=== PATIENT | female | born 1980 | race Caucasian/White ===

== ENCOUNTER 2023-03-10 10:57 | Emergency (ER) | payer OTHER, SELFPAY ==
[2023-03-10 11:03] VITALS: BP 120/80; PULSE 86; RESP 20; TEMP 36.9; O2SAT 100; BMI 24.7
--- NOTE | 2023-03-10 11:12 | XR_ITS ---
The [address] [address] Patient Name: DEEPTI QUEZADA MRN: [id number] date: 1980 Sex: F Assigned Patient Location: ER Current Patient Location: ER Accession/Order Number: [id number] Exam Date: 03/10/2023 11:29 Report Date: 03/10/2023 11:48 At the request of: ANDERSON SANCHEZ Procedure: XR knee RT 3V PROCEDURE: XR knee RT 3V COMPARISON: None. HISTORY: pain FINDINGS: BONES:No fracture, acute abnormality, or significant arthropathy. SOFT TISSUES:Negative. No visible soft tissue swelling. EFFUSION:None visible. OTHER: Negative. IMPRESSION: No acute radiographic abnormality Electronically authenticated by: SANCHEZ HARRISON Date: 03/10/2023 11:48
--- NOTE | 2023-03-10 12:05 | ED_ITS ---
HPI - Extremity Injury (Lower) General Chief Complaint: Extremity Injury, Lower Stated Complaint: LOWER PAIN Time Seen by Provider: 03/10/23 11:12 Source: patient Mode of arrival: walk-in Limitations: no limitations History of Present Illness HPI Narrative: 42-year-old female presents for right knee pain. She injured it several days ago and it hurts more to move it. She had previous meniscus surgery, years ago. A nkle and hip don't hurt and the pain is moderate. It's worse when she bears weight on it. Related Data Home Medications Medication Instructions Recorded Confirmed albuterol sulfate 90 mcg/actuation 2 puff inhalation Q4H PRN 03/10/23 03/10/23 aerosol inhaler shortness of breath or wheezing alprazolam 0.25 mg tablet 0.25 mg PO BID PRN anxiety 03/10/23 03/10/23 fluoxetine 10 mg capsule 10 mg PO DAILY 03/10/23 03/10/23 metoprolol succinate 25 mg 25 mg PO DAILY 03/10/23 03/10/23 tablet,extended release 24 hr Allergies Allergy/AdvReac Type Severity Reaction Status Date / Time No Known Drug Allergies Allergy Verified 03/10/23 11:02 Review of Systems ROS Narrative A ten point review of systems is negative except as noted above. [facility] Medical History (Updated 03/10/23 @ 12:04 by Meliton Forbes MD) Social History Smoking status: Former smoker Exam Narrative Exam Narrative: Nurses note and vital signs reviewed and patient is not hypoxic. General: The patient appears well and in no apparent distress. Patient is resting comfortably on cart. Skin: Warm, dry, no pallor noted. There is no rash noted. Head: Normocephalic, atraumatic Eye: Normal conjunctiva, no drainage Ears, Nose, Mouth, and Throat: oral mucosa is moist. Nares patent. Cardiovascular: Regular Rate and Rhythm Respiratory: Patient is in no distress, no accessory muscle use, lungs are clear to auscultation, no wheezing, rales or rhonchi Back: non-tender GI: nontender Musculoskeletal: the right hip and ankle are nontender. The right knee joint is stable. No laxity on varus or valgus motion. No obvious swelling and no bruising or erythema. Neurological: A&O, normal speech Psychiatric: Cooperative Constitutional Vital Signs - 24 hr 03/10/23 11:03 Temperature 98.4 F Pulse Rate [Monitor] 86 Respiratory Rate 20 Blood Pressure [Left Arm] 120/80 H Pulse Oximetry 100 Oxygen Delivery Method Room Air Course Vital Signs Vital signs: Vital Signs Temperature 98.4 F 03/10/23 11:03 Pulse Rate 86 03/10/23 11:03 Respiratory Rate 20 03/10/23 11:03 Blood Pressure 120/80 H 03/10/23 11:03 Pulse Oximetry 100 03/10/23 11:03 Oxygen Delivery Method Room Air 03/10/23 11:03 Temperature 98.4 F 03/10/23 11:03 Pulse Rate 86 03/10/23 11:03 Respiratory Rate 20 03/10/23 11:03 Blood Pressure 120/80 H 03/10/23 11:03 Pulse Oximetry 100 03/10/23 11:03 Oxygen Delivery Method Room Air 03/10/23 11:03 MDM - Extremity Injury (Lower) MDM Narrative Medical decision making narrative: x-rays negative. I suspect meniscal injury. Hunter wrap applied and application checked by me and found to be appropriate, she is neurovascularly intact. She is also placed on crutches and will use ice and Motrin. She will follow-up with her established orthopedist. Treatment diagnosis and follow-up were discussed with the patient. Differential Diagnosis Differential diagnosis: Likely acute internal derangement of knee and other (knee sprain, knee fracture) Discharge Plan Discharge Chief Complaint: Extremity Injury, Lower Clinical Impression: Acute internal derangement of knee Patient Disposition: Home, Self-Care Time of Disposition Decision: 12:04 Condition: Good Mode of Transportation: Private Vehicle Prescriptions / Home Meds: No Action metoprolol succinate 25 mg tablet extended release 24 hr 25 mg PO DAILY albuterol sulfate 90 mcg/actuation HFA aerosol inhaler 2 puff INHALATION Q4H PRN (Reason: shortness of breath or wheezing) alprazolam 0.25 mg tablet 0.25 mg PO BID PRN (Reason: anxiety) fluoxetine 10 mg capsule 10 mg PO DAILY Instructions: Knee Sprain (ED) Additional Instructions: Follow up with Dr Mcknight Stand Alone Forms: Portal Instructions Referrals: VINCENZO HOOVER [Primary Care Provider] - 1 week
== END 2023-03-10 12:27 | disposition home or self-care (01) ==
PROVIDERS: Emergency Provider Emergency Medicine; PCP Family Medicine
DX: M23.91 Unspecified internal derangement of right knee (principal); Z79.899 Other long term (current) drug therapy; Z87.891 Personal history of nicotine dependence
CPT/HCPCS: 73562; 99283

== ENCOUNTER 2023-11-28 11:07 | Outpatient (OUT) | payer OTHER, SELFPAY ==
--- NOTE | 2023-11-28 11:15 | XR_ITS ---
The [address] [address] Patient Name: DEEPTI QUEZADA MRN: [id number] date: 1980 Sex: F Assigned Patient Location: [facility] Current Patient Location: Accession/Order Number: [id number] Exam Date: 11/28/2023 11:20 Report Date: 11/29/2023 08:01 At the request of: LASHAE JEONG Procedure: XR cervical spine 2-3V EXAMINATION: XR cervical spine 2-3V HISTORY: acute neck pain M54.2 COMPARISON: No relevant comparison available. FINDINGS: BONES: No significant spondylosis, scoliosis, fracture, or visible bony lesion. DISC SPACES: Mild narrowing C4-5, C5-6, C6-7 with small posterior disc-osteophyte complexes. PARASPINOUS: Negative. No paraspinous abnormality is seen. OTHER: Negative. XR/XR cervical spine 2-3V IMPRESSION: 1. Multiple level mild degenerative disc disease. Electronically authenticated by: CHLOE CURRY Date: 11/29/2023 08:01
== END 2023-11-28 11:08 | disposition home or self-care (01) ==
LOC: RAD 11:11
PROVIDERS: PCP Family Medicine; Visit Provider Nurse Practitioner Family
DX: M54.2 Cervicalgia (principal)
CPT/HCPCS: 72040

== ENCOUNTER 2023-12-10 08:54 | Emergency (ER) | payer OTHER, SELFPAY ==
[2023-12-10 08:57] VITALS: BP 145/100; PULSE 81; RESP 18; TEMP 36.5; O2SAT 98; BMI 24.3
--- OUTSIDE RECORDS SUMMARY | 2023-12-10 09:16 | XMS_ITS | CCD ---
Author Organization [facility] Care Team Providers Care Motor Operator Name Role Phone JESUS ESTRADA Admitting Unavailable KARASIK, JESUS Attending Unavailable FURLOWILFRED MEDINA Primary Care Unavailable KARASIK, JESUS Admitting Unavailable KARASIK, JESUS Attending Unavailable ALYSSALOWILFRED MEDINA Primary Care Unavailable KARASIK, JESUS Consulting Unavailable KARASIK, JESUS Admitting Unavailable KARASIK, JESUS Attending Unavailable FURLOWILFRED MEDINA Primary Care Unavailable KARASIK, JESUS Consulting Unavailable BURT KEYES Consulting Unavailable KARASIK, JESUS Admitting Unavailable KARASIK, JESUS Attending Unavailable FURLOWILFRED MEDINA Primary Care Unavailable KARASIK, JESUS Consulting Unavailable KARASIK, JESUS Admitting Unavailable KARASIK, JESUS Attending Unavailable KARASIK, JESUS Admitting Unavailable KARASIK, JESUS Attending Unavailable REQUEST, NONE LISTED Primary Care Unavailable KARASIK, JESUS Consulting Unavailable SANCHEZ HARRISON V Consulting Unavailable KARASIK, JESUS Admitting Unavailable KARASIK, JESUS Attending Unavailable KARASIK, JESUS Consulting Unavailable Giacomo Juarez Unavailable Wilfred Fragoso DO Primary Care Provider LASHAE JEONG Attending Unavailable WILFRED FRAGOSO Referring Unavailable WILFRED FRAGOSO Primary Care Unavailable Medications Current Medications Medication Drug Class(es) Dates Sig (Normalized) Sig (Original) [id number] 200 actuat albuterol 0.09 mg/actuat metered dose inhaler (7 sources) beta2-Adrenergic Agonist Start: 09-10-2023 take 2 puff(s) by mouth every four hours albuterol (PROVENTIL HFA;VENTOLIN HFA) 90 mcg/actuation inhaler Indications: Mild intermittent asthma without complication inhale 2 puffs by mouth and INTO THE LUNGS every 4 hours if needed 8.5 g 0 09/10/2023 Active Start: 07-11-2023 take 3 mL by inhalat ion every six hours as needed for wheezing albuterol (PROVENTIL,VENTOLIN) 2.5 mg /3 mL (0.083 %) nebulizer solution Indications: Mild intermittent asthma without complication Inhale 3 mL (2.5 mg total) by nebulization every 6 (six) hours as needed for wheezing or shortness of breath. 75 mL 2 07/11/2023 Active take 2 puff(s) by in halation every four hours as needed Albuterol Sulfate HFA 108 (90 Base) MCG/ACT 2 puffs as needed Inhalation every 4 hrs Active ALPRAZolam 0.25 mg oral tablet (3 sources) Benzodiazepine Start: 05-08-2023 take 1 tablet by mouth twice daily as needed for anxiety ALPRAZolam (XANAX) 0.25 mg tablet Indications: Anxiety Take 1 tablet (0.25 mg total) by mouth 2 (two) times a day as needed for anxiety. 30 tablet 0 05/08/2023 Active baclofen 10 mg oral tablet (2 sources) gamma-Aminobutyric Acid-ergic Agonist Start: 11-22-2023 take 1 tablet by mouth three times daily as needed for muscle spasms baclofen (LIORESAL) 10 mg tablet Take 1 tablet (10 mg total) by mouth 3 (three) times a day as needed for muscle spasms. 30 tablet 1 11/22/2023 Active gabapentin 300 mg oral capsule (1 source) Anti-epileptic Agent Start: 11-26-2023 take 1 capsule by mouth once daily as needed gabapentin (NEURONTIN) 300 mg capsule Indications: Cervical radiculopathy Take 1 capsule (300 mg total) by mouth daily as needed (nerve symptoms to arm). 7 capsule 0 11/26/2023 Active Start: 11-26-2023 take 1 capsule by [facility] once daily as needed gabapentin (NEURONTIN) 300 mg capsule Indications: Cervical radiculopathy Take 1 capsule (300 mg total) by mouth daily as needed (nerve symptoms to arm). 7 capsule 0 11/26/2023 Active 24 hr metoprolol succinate 25 mg extended release oral tablet (3 sources) beta-Adrenergic Umer Start: 06-03-2023 take 1 tablet by mouth once daily in the morning metoprolol succinate XL (TOPROL XL) 25 mg 24 hr tablet Indications: Primary hypertension take 1 tablet by mouth every morning 30 tablet 2 06/03/2023 Active predniSONE 20 mg oral tablet (2 sources) Start: 11-22-2023 End: 11-27-2023 take 1 tablet by mouth in the morning, then take 1 tablet by mouth at bedtime predniSONE (DELTASONE) 20 mg tablet Take 1 tablet (20 mg total) by mouth in the morning and 1 tablet (20 mg total) before bedtime. Do all this for 5 days. 10 tablet 0 11/22/2023 11/27/2023 Active vortioxetine 5 mg oral tablet (4 sources) Start: 08-22-2023 End: 10-28-2023 take 1 tablet by mouth once daily in the morning vortioxetine (TRINTELLIX) 5 mg tablet take 1 tablet by mouth every morning 30 tablet 0 10/28/2023 Active Problems Active Problems Problem Classification Problem Date Documented Da te Episodic/Chronic Abdominal pain (1 source) Pelvic and perineal pain; Translations: [PELVIC AND PERINEAL PAIN] Onset: 11-05-2018 Anxiety disorders (3 sources) Anxiety; Translations: [Anxiety disorder, unspecified] 12-10-2022 Chronic Asthma (1 source) Unspecified asthma, uncomplicated; Translations: [UNSPECIFIED ASTHMA UNCOMPLICATED] Onset: 11-05-2018 Chronic Diseases of white blood cells (1 source) Elevated white blood cell count, unspecified; Translations: [ELEVATED WHITE BLOOD CELL COUNT UNS] Onset: 11-05-2018 Chronic Essential hypertension (3 sources) Essential hypertension; Translations: [Essential (primary) hypertension] Onset: 12-10-2022 12-10-2022 Chronic Mood disorders (3 sources) Depressive disorder; Translations: [Depression] 12-10-2022 Chronic Mycoses (1 source) Candidiasis of vulva and vagina; Translations: [CANDIDIASIS OF VULVA AND VAGINA] Onset: 09-29-2019 Episodic Other diseases of bladder and urethra (3 sources) Mass of urinary bladder; Translations: [Other specified disorders of bladder] Onset: 07-01-2019 05-04-2020 Chronic Other female genital disorders (5 sources) Abnormal uterine and vaginal bleeding, unspecified; Translations: [ABNORMAL UTERINE VAGINAL BLEED UNS] Onset: 10-28-2018 Chronic Other screening for suspected conditions (not mental disorders or infectious disease) (4 sources) Encounter for screening for malignant neoplasm of cervix; Translations: [ENC SCREENING MALIG NEOPLASM CERV] Onset: 09-24-2019 Episodic Spondylosis; intervertebral disc disorders; other back problems (3 sources) Neck pain; Translations: [Cervicalgia] Onset: 11-22-2023 11-22-2023 Episodic Unclassified (1 source) throbbing Onset: 11-22-2023 Past or Other Problems Problem Classification Problem Date Documented Da te Episodic/Chronic Abdominal pain (5 sources) Unspecified abdominal pain; Translations: [Left lower quadrant pain] Onset: 12-24-2018 Episodic Acute posthemorrhagic anemia (1 source) Acute posthemorrhagic anemia; Translations: [ACUTE POSTHEMORRHAGIC ANEMIA] Onset: 11-05-2018 Episodic Calculus of urinary tract (3 sources) Kidney stone; Translations: [Calculus of kidney] Onset: 05-27-2019 05-27-2019 Episodic Genitourinary symptoms and ill-defined conditions (6 sources) Blood in urine; Translations: [Hematuria, unspecified] Onset: 05-27-2019 05-04-2020 Episodic Immunizations and screening for infectious disease (2 sources) Encounter for screening for human papillomavirus (HPV); Translations: [Contact with and (suspected) exposure to other viral communicable diseases] Onset: 09-29-2019 Resolved: 09-21-2021 Episodic Inflammatory diseases of female pelvic organs (1 source) Female pelvic peritoneal adhesions (postinfective); Translations: [FE PELV PERITON ADHES POSTINFECTIVE] Onset: 11-05-2018 Episodic Mood disorders (3 sources) Mood disorders Onset: 08-22-2023 Resolved: 11-22-2023 08-22-2023 Other female genital disorders (4 sources) Unspecified condition associated with female genital organs and menstrual cycle; Translations: [UNS COND W/FE GENIT ORGN MENST CYCL] Onset: 06-04-2019 Episodic Other gastrointestinal disorders (1 source) Constipation; Translations: [Constipation] Episodic Residual codes; unclassified (1 source) Acquired absence of both cervix and uterus; Translations: [ACQUIRED ABSENCE BOTH CERVIX AND UTERUS] Onset: 06-10-2019 Episodic Screening and history of mental health and substance abuse codes (1 source) Personal history of nicotine dependence; Translations: [PERSONAL HISTORY OF NICOTINE DEPEND] Onset: 11-05-2018 Episodic Results Test Name Value Interpretation Reference Range Facility COVID Quick Testingon 2021 Result Negative [employer] Other PAP ACOG PANEL 2: 30 to 65on 09-30-2019 Age Gdln ACOG Testing 30-65 Normal [facility] Comment on above: Performed By: #### P REG #### [facility] [address] [address] Errol Waddell COMMENT Comment Normal [facility] Comment on above: Result Comment: Z01. 419 Z11.51 Performed at: WB Performed By: #### P REG #### [facility] [address] [address] Errol Waddell DIAGNOSIS: Comment Normal [facility] Comment on above: Result Comment: NEGA TIVE FOR INTRAEPITHELIAL LESION OR MALIGNANCY. Performed at: WB Performed By: #### P REG #### [facility] [address] [address] Errol Waddell HPV Aptima Negative Normal Negative [facility] Comment on above: Result Comment: This test was developed and its performance characteristics determined by [employer]. It has not been cleared or approved by the Food and Drug Administration. This nucleic acid amplification test detects fourteen high-risk HPV types (16,18,31,33,35,39,45,51,52,56,58,59,66,68) without differentiation. Performed at: =G Performed By: #### P REG #### [facility] [address] [address] Errol Waddell Methodology: Comment Normal [facility] Comment on above: Result Comment: This liquid based SurePath(R) pap test was screened with the assistance of an image guided system. Performed at: WB Performed By: #### P REG #### [facility] [address] [address] Errol Waddell Note: Comment Normal [facility] Comment on above: Result Comment: The Pap smear is a screening test designed to aid in the detection of premalignant and malignant conditions of the uterine cervix. It is not a diagnostic procedure and should not be used as the sole means of detecting cervical cancer. Both false-positive and false-negative reports do occur. . Performed at: WB Performed By: #### P REG #### [facility] [address] [place] [address] Errol Waddell Performed by: Comment Normal [facility] Comment on above: Result Comment: Connie Awan, Ambulatory Care Coordinator (ASCP) Performed at: WB Performed By: #### P REG #### [facility] [address] [place] [address] Errol Waddell Specimen adequacy: Comment Normal [facility] Comment on above: Result Comment: Sati sfactory for evaluation. No endocervical cells are present. This is consistent with a history of hysterectomy. Performed at: WB Performed By: #### P REG #### [facility] [address] [place] [address] Errol Waddell . . Normal [facility] Comment on above: Result Comment: Perf ormed at: WB Performed By: #### P REG #### [facility] [address] [place] [address] Errol Waddell VAGINITIS/VAGINOSIS DNA PROB Micah 09-27-2019 Edna species Positive Abnormal Negative [facility] Comment on above: Performed By: #### P REG #### [facility] [address] [place] [address] Errol Waddell Gardnerella vaginalis Negative Normal Negative [facility] Comment on above: Performed By: #### P REG #### [facility] [address] [place] [address] Errol Waddell Trichomonas vaginalis Negative Normal Negative [facility] Comment on above: Performed By: #### P REG #### [facility] [address] [place] [address] Errol Waddell US PELVIS AND TRANSVAGon US PELVIS AND TRANSVAG Patient: DEEPTI ARELLANO Exam Date: 06/04/2019 : 1980 Gender:F Ordering : DR JESUS ESTRADA . Admission #: [id number] Family : Order #: [id number] CLICK HERE TO VIEW EXAM RADIOLOGY REPORT PROCEDURE: ULTRASOUND PELVIS AND TRANSVAGINAL COMPARISON: None. INDICATIONS: Disorder of female genital organs N94.9 TECHNIQUE: Transabdominal sonographic examination. Transvaginal sonographic examination. FINDINGS: UTERUS: Surgically absent. RIGHT OVARY: Normal size and appearance. Blood flow present within ovary on color Doppler. Right ovary: 2.4 x 3.0 x 1.8 cm (6.8 cc) LEFT OVARY: Normal size and appearance. Blood flow is present within ovary on Color Doppler. Left ovary: 1.6 x 1.1 x 1.5 cm (1.4 cc) CONCLUSION: 1. Hysterectomy, otherwise normal exam Dictated by: Sanchez Harrison M.D. on 06/04/2019 at 12:20 Approved by: Sanchez Harrison M.D. on 06/04/2019 at 12:23 Normal [facility] UA RANDOM W/MICROSCOPICon Bacteria LM.HPF (Urine sed) [#/Area] NONE SEEN Normal NONE SEEN The [facility] Comment on above: Performed By: #### P REG #### [facility] [address] [place] [address] Errol Nadira Bilirubin [Mass/Vol] Negative Normal NEGATIVE [facility] Comment on above: Performed By: #### P REG #### [facility] [address] [place] [address] Errol Nadira BLOOD TRACE-INTACT Normal NEGATIVE [facility] Comment on above: Performed By: #### P REG #### [facility] [address] [place] [address] Errol Nadira CAST NONE SEEN Normal NONE SEEN [facility] Comment on above: Performed By: #### P REG #### [facility] [address] [place] [address] Errol Nadira Clarity (U) CLEAR Normal [facility] Comment on above: Performed By: #### P REG #### [facility] [address] [place] [address] Errol Nadira Color (U) YELLOW Normal YELLOW [facility] Comment on above: Performed By: #### P REG #### [facility] [address] [place] [address] Errol Nadira Crystals LM Nom (Urine sed) NONE SEEN Normal NONE SEEN The [facility] Comment on above: Performed By: #### P REG #### [facility] [address] [place] [address] Errol Nadira Epithelial cells LM.HPF (Urine sed) [#/Area] FEW Normal [facility] Comment on above: Performed By: #### P REG #### [facility] [address] [place] [address] Errol Nadira Glucose [Mass/Vol] Negative Normal NEGATIVE [facility] Comment on above: Performed By: #### P REG #### [facility] [address] [place] [address] Errol Nadira Ketones Ql (U) Negative Normal NEGATIVE [facility] Comment on above: Performed By: #### P REG #### [facility] [address] [place] [address] Errol Nadira MUCOUS MODERATE Normal NONE SEEN The [facility] Comment on above: Performed By: #### P REG #### [facility] [address] [place] [address] Errol Nadira Nitrite Ql (U) Negative Normal NEGATIVE [facility] Comment on above: Performed By: #### P REG #### [facility] [address] [place] [address] Errol Nadira pH (Bld) 6.5 Normal 5-9 [facility] Comment on above: Performed By: #### P REG #### [facility] [address] [place] [address] Errol Nadira Protein [Mass/Vol] Negative Normal [facility] Comment on above: Performed By: #### P REG #### [facility] [address] [place] [address] Errol Nadira RBC (Bld) [#/Vol] 0-2 Normal 0-2 [facility] [place] Comment on above: Performed By: #### P REG #### [facility] [address] [place] [address] Errol Nadira SPEC GRAVITY 1.020 Normal 1.005-<=1.[address] [facility] Comment on above: Performed By: #### P REG #### [facility] [address] [place], [place] [address] Errol Waddell Urobilinogen Qn (U) 1.0 EU/dl Normal [facility] Comment on above: Performed By: #### P REG #### [facility] [address] [place], [place] [address] Erroladelaida Waddell WBC (Bld) [#/Vol] Negative Normal NEGATIVE [facility] [place] Comment on above: Performed By: #### P REG #### [facility] [address] [place], [place] [address] Errol Nadira WBC (Bld) [#/Vol] 0-2 Normal NONE SEEN The [facility] [place] Comment on above: Performed By: #### P REG #### [facility] [address] [place], [place] [address] Errol Waddell Yeast LM Ql (Urine sed) PRESENT Normal [facility] Comment on above: Performed By: #### P REG #### [facility] [address] [place], [place] [address] Errol Waddell PRBC LEUKOREDUCEDon 11-12-19 19 ABO and Rh group Nom (Bld) Cross Match Result Compatible Unit Blood Type O Pos Unit Number [id number] Status Information Transfused Product ID Red Blood Cells Product Code [id number] Cross Match Result Compatible Unit Blood Type O Pos Unit Number [id number] Status Information Transfused Product ID Red Blood Cells Product Code [id number] [facility] Comment on above: Performed By: #### P RBC #### [facility] [address] [place], [place] [address] Errol Waddell ABO and Rh group Nom (Bld) Cross Match Result Compatible Unit Blood Type O Pos Unit Number [id number] Status Information Transfused Product ID Red Blood Cells Product Code [id number] Cross Match Result Compatible Unit Blood Type O Pos Unit Number [id number] Status Information Transfused Product ID Red Blood Cells Product Code [id number] [facility] Comment on above: Performed By: #### P RBC #### [facility] [address] [place] [address] Errol Nadira CBC AUTO DIFFon 10-29-2018 Basophils (Bld) [#/Vol] 0.0 103/ul Normal 0.0-0.1 [facility] Comment on above: Performed By: #### C BC #### [facility] [address] [place], [place] [address] Errol Nadira Basophils/100 WBC (Bld) 0.2 % Normal 0.2-2.0 [facility] Comment on above: Performed By: #### C BC #### [facility] [address] [place] [address] Errol Nadira Eosinophils (Bld) [#/Vol] 0.2 103/ul Normal 0.0-0.7 [facility] Comment on above: Performed By: #### C BC #### [facility] [address] [place] [address] Errol Nadira Eosinophils/100 WBC (Bld) 1.8 % Normal 0.9-7.0 [facility] Comment on above: Performed By: #### C BC #### [facility] [address] [place] [address] Errol Nadira Erythrocyte distribution width (RBC) [Ratio] 13.6 % Normal 11.0-15.0 [facility] Comment on above: Performed By: #### C BC #### [facility] [address] [place], [place] [address] Errol Nadira Hematocrit (Bld) [Volume fraction] 26.2 % Critically low 36.0-48.0 [facility] Comment on above: Performed By: #### C BC #### [facility] [address] [place] [address] Errol Nadira Hemoglobin (Bld) [Mass/Vol] 8.9 g/dL Critically low 12.0-16.0 [facility] Comment on above: Performed By: #### C BC #### [facility] [address] [place] [address] Errol Nadira IG # 0.04 10e3/ul Critically high 0.00-0.[address] [facility] Comment on above: Performed By: #### C BC #### [facility] [address] [id number] Errol Nadira IG % 0.4 % Normal 0.0-0.5 [facility] Comment on above: Performed By: #### C BC #### [facility] [address] [place], [place] [address] Errol Nadira Lymphocytes (Bld) [#/Vol] 2.2 103/ul Normal 1.2-3.8 [facility] Comment on above: Performed By: #### C BC #### [facility] [address] [place], [place] [address] Errol Nadira Lymphocytes/100 WBC (Bld) 23.5 % Normal 20.5-60.0 [facility] Comment on above: Performed By: #### C BC #### [facility] [address] [place], [place] [address] Errol Nadira MANUAL DIFF REQ NO Normal The [facility] Comment on above: Performed By: #### C BC #### [facility] [address] [place], [place] [address] Errol Nadira MCH (RBC) [Entitic mass] 30.6 pg Normal 26.7-34.0 [facility] Comment on above: Performed By: #### C BC #### [facility] [address] [place] [address] Errol Nadira MCHC (RBC) [Mass/Vol] 34.0 g/dL Normal 29.9-35.2 [facility] Comment on above: Performed By: #### C BC #### [facility] [address] [place], [place] [address] Errol Nadira MCV (RBC) [Entitic vol] 90.0 fL Normal 81.0-99.0 [facility] Comment on above: Performed By: #### C BC #### [facility] [address] [place], [place] [address] Errol Nadira Monocytes (Bld) [#/Vol] 0.5 103/ul Normal 0.3-0.8 [facility] Comment on above: Performed By: #### C BC #### [facility] [address] [place], [place] [address] Errol Nadira Monocytes/100 WBC (Bld) 5.6 % Normal 1.7-12.0 [facility] Comment on above: Performed By: #### C BC #### [facility] [address] [place], [place] [address] Errol Nadira Neutrophils (Bld) [#/Vol] 6.4 103/ul Normal 1.4-6.5 [facility] Comment on above: Performed By: #### C BC #### [facility] [address] [place], [place] [address] Errol Nadira Neutrophils/100 WBC (Bld) 68.5 % Normal 43.0-75.0 [facility] Comment on above: Performed By: #### C BC #### [facility] Laboratory [address] [place] [id number] Errol Nadira Platelet mean volume (Bld) [Entitic vol] 10.2 fL Normal 9.5-13.5 [facility] Comment on above: Performed By: #### C BC #### [facility] Laboratory [address] [place], [place] [address] Errol Nadira Platelets (Bld) [#/Vol] 145 103/ul Critically low 150-450 The [facility] Comment on above: Performed By: #### C BC #### [facility] Laboratory [address] [place] [address] Errol Nadira RBC (Bld) [#/Vol] 2.91 106/ul Critically low 4.20-5.40 [facility] Comment on above: Performed By: #### C BC #### [facility] Laboratory [address] [place], [place] [address] Errol Nadira WBC (Bld) [#/Vol] 9.3 103/ul Normal 4.0-11.0 The [facility] [place] Comment on above: Performed By: #### C BC #### [facility] Laboratory [address] [place] [address] Errol Nadira HEMOGLOBINon 10-29-2018 Hemoglobin (Bld) [Mass/Vol] 9.6 g/dL Critically low 12.0-16.0 The [facility] Comment on above: Performed By: #### H GB #### [facility] Laboratory [address] [place], [place] [id number] Erroladelaida Waddell BUNon 10-28-2018 Urea nitrogen [Mass/Vol] 12.0 mg/dL Normal 7.0-17.0 The [facility] Comment on above: Performed By: #### C DAVID, BUN #### [facility] Laboratory [address] [place], [place] [phone] Errol Nadira CBC AUTO DIFFon 10-28-2018 Basophils (Bld) [#/Vol] 0.0 103/ul Normal 0.0-0.1 The [facility] Comment on above: Performed By: #### C BC #### [facility] Laboratory [address] [place] [address] Errol Nadira Basophils/100 WBC (Bld) 0.2 % Normal 0.2-2.0 The [facility] Comment on above: Performed By: #### C BC #### [facility] Laboratory [address] [place] [address] Errol Nadira Eosinophils (Bld) [#/Vol] 0.1 103/ul Normal 0.0-0.7 The [facility] Comment on above: Performed By: #### C BC #### [facility] Laboratory [address] [place] [address] Errol Nadira Eosinophils/100 WBC (Bld) 0.7 % Critically low 0.9-7.0 The [facility] Comment on above: Performed By: #### C BC #### [facility] Laboratory [address] [place] [address] Errol Nadira Erythrocyte distribution width (RBC) [Ratio] 13.2 % Normal 11.0-15.0 The [facility] Comment on above: Performed By: #### C BC #### [facility] Laboratory [address] [place] [address] Errol Nadira Hematocrit (Bld) [Volume fraction] 23.5 % Critically low 36.0-48.0 The [facility] Comment on above: Result Comment: test repeated, critical value verified Performed By: #### C BC #### [facility] Laboratory [address] [place], [place] [address] Errol Nadira Hemoglobin (Bld) [Mass/Vol] 7.9 g/dL Critically low 12.0-16.0 The [facility] Comment on above: Performed By: #### C BC #### [facility] Laboratory [address] [place], [place] [address] Errol Nadira IG # 0.09 10e3/ul Critically high 0.00-0.[address] [facility] Comment on above: Performed By: #### C BC #### [facility] Laboratory [address] [place] [id number] Errol Naidra IG % 0.6 % Critically high 0.0-0.[address] [facility] Comment on above: Performed By: #### C BC #### [facility] Laboratory [address] [place] [id number] Errol Nadira Lymphocytes (Bld) [#/Vol] 2.5 103/ul Normal 1.2-3.8 The [facility] Comment on above: Performed By: #### C BC #### [facility] Laboratory [address] [place], [place] [phone] Errol Nadira Lymphocytes/100 WBC (Bld) 17.0 % Critically low 20.5-60.0 [facility] Comment on above: Performed By: #### C BC #### [facility] Laboratory [address] [place], [place] [address] Errol Nadira MANUAL DIFF REQ NO Normal The [facility] Comment on above: Performed By: #### C BC #### [facility] Laboratory [address] [place], [place] [address] Errol Nadira MCH (RBC) [Entitic mass] 30.6 pg Normal 26.7-34.0 [facility] Comment on above: Performed By: #### C BC #### [facility] Laboratory [address] [place], [place] [address] Errol Nadira MCHC (RBC) [Mass/Vol] 33.6 g/dL Normal 29.9-35.2 The [facility] Comment on above: Performed By: #### C BC #### [facility] Laboratory [address] [place], [place] [address] Errol Nadira MCV (RBC) [Entitic vol] 91.1 fL Normal 81.0-99.0 [facility] Comment on above: Performed By: #### C BC #### [facility] Laboratory [address] [place] [address] Errol Nadira Monocytes (Bld) [#/Vol] 0.8 103/ul Normal 0.3-0.8 The [facility] Comment on above: Performed By: #### C BC #### [facility] Laboratory [address] [place], [place] [address] Errol Nadira Monocytes/100 WBC (Bld) 5.3 % Normal 1.7-12.0 [facility] Comment on above: Performed By: #### C BC #### [facility] Laboratory [address] [place], [place] [address] Errol Nadira Neutrophils (Bld) [#/Vol] 11.2 103/ul Critically high 1.4-6.5 [facility] Comment on above: Performed By: #### C BC #### [facility] Laboratory [address] [place] [address] Errol Nadira Neutrophils/100 WBC (Bld) 76.2 % Critically high 43.0-75.0 [facility] Comment on above: Performed By: #### C BC #### [facility] Laboratory [address] [place] [address] Errol Nadira Platelet mean volume (Bld) [Entitic vol] 10.0 fL Normal 9.5-13.5 [facility] Comment on above: Performed By: #### C BC #### [facility] Laboratory [address] [place] [address] Errol Nadira Platelets (Bld) [#/Vol] 186 103/ul Normal 150-450 The [facility] Comment on above: Performed By: #### C BC #### [facility] Laboratory [address] [place], [place] [address] Errol Nadira RBC (Bld) [#/Vol] 2.58 106/ul Critically low 4.20-5.40 [facility] Comment on above: Performed By: #### C BC #### [facility] [address] [place], [place] [address] Errol Nadira WBC (Bld) [#/Vol] 14.7 103/ul Critically high 4.0-11.0 [facility] Comment on above: Performed By: #### C BC #### [facility] Laboratory [address] [place], [place] [address] Errol Nadira Basophils (Bld) [#/Vol] 0.0 103/ul Normal 0.0-0.1 [facility] Comment on above: Performed By: #### C BC #### [facility] [address] [place], [place] [address] Errol Nadira Basophils/100 WBC (Bld) 0.1 % Critically low 0.2-2.0 [facility] Comment on above: Performed By: #### C BC #### [facility] Laboratory [address] [place], [place] [address] Errol Nadira Eosinophils (Bld) [#/Vol] 0.0 103/ul Normal 0.0-0.7 [facility] Comment on above: Performed By: #### C BC #### [facility] Laboratory [address] [place], [place] [address] Errol Nadira Eosinophils/100 WBC (Bld) 0.0 % Critically low 0.9-7.0 [facility] Comment on above: Performed By: #### C BC #### [facility] Laboratory [address] [place], [place] [address] Errol Nadira Erythrocyte distribution width (RBC) [Ratio] 12.4 % Normal 11.0-15.0 [facility] Comment on above: Performed By: #### C BC #### [facility] Laboratory [address] [place], [place] [address] Errol Nadira Hematocrit (Bld) [Volume fraction] 20.0 % Critically low 36.0-48.0 [facility] Comment on above: Result Comment: Test Repeated. Critical Value Verified Performed By: #### C BC #### [facility] [address] [place], [place] [address] Errol Nadira Hemoglobin (Bld) [Mass/Vol] 6.7 g/dL Critically low 12.0-16.0 [facility] Comment on above: Result Comment: Test Repeated. Critical Value Verified Performed By: #### C BC #### [facility] [address] [place] [id number] Errol Nadira IG # 0.11 10e3/ul Critically high 0.00-0.[address] [facility] Comment on above: Performed By: #### C BC #### [facility] Laboratory [address] [place] [address] Errol Nadira IG % 0.5 % Normal 0.0-0.5 [facility] Comment on above: Performed By: #### C BC #### [facility] Laboratory [address] [place] [address] Errol Nadira Lymphocytes (Bld) [#/Vol] 1.5 103/ul Normal 1.2-3.8 [facility] Comment on above: Performed By: #### C BC #### [facility] Laboratory [address] [place] [address] Errol Nadira Lymphocytes/100 WBC (Bld) 6.8 % Critically low 20.5-60.0 [facility] Comment on above: Performed By: #### C BC #### [facility] Laboratory [address] [place], [place] [address] Errol Nadira MANUAL DIFF REQ NO Normal [facility] Comment on above: Performed By: #### C BC #### [facility] Laboratory [address] [place] [address] Errol Nadira MCH (RBC) [Entitic mass] 31.6 pg Normal 26.7-34.0 [facility] Comment on above: Performed By: #### C BC #### [facility] Laboratory [address] [place], [place] [address] Errol Nadira MCHC (RBC) [Mass/Vol] 33.5 g/dL Normal 29.9-35.2 [facility] Comment on above: Performed By: #### C BC #### [facility] Laboratory [address] [place], [place] [address] Errol Nadira MCV (RBC) [Entitic vol] 94.3 fL Normal 81.0-99.0 [facility] Comment on above: Performed By: #### C BC #### [facility] Laboratory [address] [place], [place] [address] Errol Nadira Monocytes (Bld) [#/Vol] 1.2 103/ul Critically high 0.3-0.8 [facility] Comment on above: Performed By: #### C BC #### [facility] Laboratory [address] [place], [place] [address] Errol Nadira Monocytes/100 WBC (Bld) 5.6 % Normal 1.7-12.0 [facility] Comment on above: Performed By: #### C BC #### [facility] Laboratory [address] [place], [place] [address] Errol Nadira Neutrophils (Bld) [#/Vol] 18.5 103/ul Critically high 1.4-6.5 [facility] Comment on above: Performed By: #### C BC #### [facility] Laboratory [address] [place], [place] [address] Errol Nadira Neutrophils/100 WBC (Bld) 87.0 % Critically high 43.0-75.0 [facility] Comment on above: Performed By: #### C BC #### [facility] Laboratory [address] [place], [place] [address] Errol Nadira Platelet mean volume (Bld) [Entitic vol] 10.3 fL Normal 9.5-13.5 [facility] Comment on above: Performed By: #### C BC #### [facility] Laboratory [address] [place], [place] [address] Errol Nadira Platelets (Bld) [#/Vol] 288 103/ul Normal 150-450 [facility] Comment on above: Performed By: #### C BC #### [facility] Laboratory [address] [place], [place] [address] Errol Nadira RBC (Bld) [#/Vol] 2.12 106/ul Critically low 4.20-5.40 Th [facility] Comment on above: Performed By: #### C BC #### [facility] Laboratory [address] [place], [place] [address] Errol Nadira WBC (Bld) [#/Vol] 21.2 103/ul Critically high 4.0-11.0 T [facility] Comment on above: Result Comment: Post Surgery Performed By: #### C BC #### [facility] [address] [place], [place] [address] Errol Waddell CREATININEon 10-28-2018 Creatinine [Mass/Vol] mg/dL Normal >=60 [facility] Comment on above: Performed By: #### C DAVID, BUN #### [facility] Laboratory [address] [place] [id number] Errol Waddell Creatinine [Mass/Vol] 1.01 mg/dL Normal 0.52-1.04 [facility] Comment on above: Performed By: #### C DAVID, BUN #### [facility] Laboratory [address] [place] [address] Errol Waddell PREG HCG QUALon 10-27-2018 , QUAL Negative Normal NEGATIVE [facility] Comment on above: Performed By: #### P REG #### [facility] Laboratory [address] [place], [place] [address] Errol Waddell TYPE AND SCREENon 10-25-2018 TYPE AND SCREEN Negative Normal [facility] Comment on above: Performed By: #### T NS #### [facility] Laboratory [address] [place], [place] [address] Errol Waddell Vital Signs Date Time Vital Sign Value Performing Clinician Facility 11-22-2023 10:10-0500 Body height 170.2 cm Lashae Jeong APRN-COOKER LOADER Work Phone: [facility] 11-22-2023 10:10-0500 Body mass index (BMI) [Ratio] 25.12 kg/m2 Lashae Jeong RESEARCH LAB ASSISTANT-COOKER LOADER Work Phone: [facility] 11-22-2023 10:10-0500 Body temperature 93 [degF] Lashae Jeong RESEARCH LAB ASSISTANT-COOKER LOADER Work Phone: [facility] 11-22-2023 10:10-0500 Body weight 72.76 kg Lashae Jeong RESEARCH LAB ASSISTANT-C[employer]ER LOADER Work Phone: [facility] 11-22-2023 10:10-0500 Diastolic blood pressure 70 mm[Hg] Lashae Jeong RESEARCH LAB ASSISTANT-[employer]ER LO[employer]ER Work Phone: [facility] 11-22-2023 10:10-0500 Heart rate 89 /min Lashae Jeong RESEARCH LAB ASSISTANT-[employer]ER LO[employer]ER Work Phone: [facility] 11-22-2023 10:10-0500 SaO2% (BldA) [Mass fraction] 93 % Lashae Jeong APRN-[employer]OOKER LOADER Work Phone: [facility] 11-22-2023 10:10-0500 Systolic blood pressure 100 mm[Hg] Lashae Jeong RESEARCH LAB ASSISTANT-[employer]ER LO[employer]ER Work Phone: [facility] 09-21-2021 13:30-0500 Body height 170.18 cm Giacomo Juarez Other [facility] Other 09-21-2021 13:30-0500 Body mass index (BMI) [Ratio] 23.49 kg/m2 Giacomo Juarez Other [facility] Other 09-21-2021 13:30-0500 Body temperature 96.9 [degF] Giacomo Juarez Other [employer] Other 09-21-2021 13:30-0500 Body weight 68.04 kg Giacomo Juarez Other [employer] Other 09-21-2021 13:30-0500 Respiratory rate 18 /min Giacomo Juarez Other [employer] Other 09-21-2021 13:30-0500 SaO2% (BldA) [Mass fraction] 99 % Giacomo Juarez Other [employer] Other Encounters Encounter Date Encounter Type Care Provider Facility Start: 11-26-2023 Orders Only Lashae Abbey Gerald RESEARCH LAB ASSISTANT-[employer]ER LOADER [facility] Phone[facility] Comment on above: Cervical radiculopat hy (Primary Dx) Start: 11-22-2023 End: 11-22-2023 ambulatory [facility] Start: 11-22-2023 End: 11-22-2023 Office outpatient visit 15 minutes Lashae L Gerald RESEARCH LAB ASSISTANT-[employer]ER LOADER Work Phone: [facility] Comment on above: Neck pain (Primary D x) Start: 10-26-2023 Refill Lashae L Gerald RESEARCH LAB ASSISTANT-[employer]ER LOADER Work Phone[facility] Start: 09-21-2021 End: 09-21-2021 ambulatory Giacomo Juarez Other [employer] Other Start: 09-21-2021 Office outpatient ne w 20 minutes Giacomo Juarez [facility] Start: 09-24-2019 End: 09-24-2019 Patient encounter procedure JESUS DI[place]LOZ[place] Facility:[facility]1 Start: 06-04-2019 End: 06-05-2019 Patient encounter procedure JESUS DIORCARLOZLondon Facility:[facility] Start: 12-25-2018 Patient encounter procedure JESUS ESTRADA Facility:[facility] Start: 12-24-2018 End: 12-24-2018 Patient encounter procedure JESUS KARCARLOZLondon Facility:[facility]1 Start: 10-29-2018 Encounter for preprocedural laboratory examination JESUS ESTRADA [facility] Start: 10-28-2018 Encounter for other preprocedural examination JESUS KARGUMARO [facility] Start: 10-28-2018 End: 10-29-2018 Patient encounter procedure JESUS KARCARLOZLondon Facility:[facility]1 Start: 10-25-2018 End: 10-26-2018 Patient encounter procedure JESUS DIORCARLOZLondon Facility:[facility]1 Start: 10-22-2018 End: 10-23-2018 Patient encounter procedure JESUS KARGUMARO Facility:[facility]1 Encounter for other preprocedural examination JESUS ESTRADA [facility] Encounter for preprocedural laboratory examination JESUSDONNA ESTRADA [facility] Procedures Date Procedure Procedure Detail Performing Clinician Start: 11-22-2023 Adult depression screening assessment Lashae Jeong APRNMOMO Work Phone: Start: 08-22-2023 Adult depression screening assessment Lashae Jeong RESEARCH LAB ASSISTANT-[employer]ER LOADER Work Phone: Plan of Treatment Date Care Activity Detail Author Start: 11-21-2024 Adult BMI Screening Adult BMI Screen ing [facility] Start: 11-21-2024 Depression Screening Depression Scre ening [facility] Start: 11-21-2024 Tobacco Screening Tobacco Screening [facility] Start: 08-22-2024 Adult BMI Screening Adult BMI Screen ing [facility] Start: 08-22-2024 Depression Screening Depression Scre ing [facility] Start: 08-22-2024 Tobacco Screening Tobacco Screening [facility] Start: 12-05-2023 End: 12-05-2023 Patient encounter procedure 12/05/2023 3:30 PM EDT Office Visit [facility] [address] [place] [address] Wilfred Fragoso, DO [address] [facility] [place] [address] [facility] Start: 11-22-2023 End: 11-21-2024 XR Cervical spine Views X-ray spine cervical 3 views or less Imaging Routine Neck pain Expected: 11/22/2023, Expires: 11/21/2024 [facility] Work Phone: Comment on above: Expected: 11/22/2023 , Expires: 11/21/2024 Start: 05-17-2023 COVID-19 Vaccine ( season) COVID-19 Vaccine ( season) [facility] Start: 05-17-2023 Influenza vaccination Influenza Vacc ine [facility] Start: 1999 DTaP,Tdap and Td Vaccines (1 - Tdap) DTaP,Tdap and Td Vaccines (1 - Tdap) [facility] Start: 1998 Adult BMI Follow Up Plan Adult BMI Follow Up Plan [facility] Immunizations Immunization Date Immunization Notes Care Provider Lorraine wiley 08-05-2020 influenza virus vaccine, unspecified formulation Lashae Jeong RESEARCH LAB ASSISTANT-COOKER LOADER Work Phone: [facility] Payers Date Payer Category Payer Private Health Insurance [employer] A ETNA POS II [id number] 2023-Present [phone] [address] [place] [address] [id number] 2023 Private Health Insurance [id number] 1980 Unknown [id number] 1980 Unknown [id number] 1980 Unknown [id number] 1980 Unknown [id number] 1980 Unknown [id number] 1980 Unknown [id number] 1980 Unknown [id number] 1980 Unknown [id number] 1959 Private Health Insurance [id number] 1959 Self-pay 1959 Unknown [id number] Private Health Insurance [id number] Social History Date Type Detail Facility Start: 09-29-2020 End: 08-22-2023 Sex Assigned At [facility] Start: 08-22-2023 Tobacco smoking stat us NHIS Ex-smoker [facility] History of tobacco use Current smoker [facility] Start: 08-22-2023 Tobacco use and exposure Smokeless tobacco non-user [facility] Start: 08-22-2023 End: 11-22-2023 Alcohol intake Current drinker of alcohol (finding) [facility] Start: 09-29-2020 End: 08-22-2023 History of Social function [facility] How hard is it for y ou to pay for the very basics like food, housing, medical care, and heating Not hard at all [facility] Start: 06-02-2019 Alcohol Comment occassional [facility] Start: 1980 Sex Assigned At Female P [facility] Start: 07-01-2019 Gender identity Identifies as female gender (finding) [facility] Start: 07-01-2019 Sexual orientation Heterosexual (fin ding) [facility] Clinical Notes 09-21-2021 to 11-26-2023 RYANNE Chahal - 11/26/2023 8:35 AM EDTBRYANNE Villa - 11/22/2023 10:00 AM ESTTelephone Encounter - Wilfred Fragoso, - 10/26/2023 9:46 AM EST Note Date & Type Note Facility 11-26-2023 History of Presen t illness Narrative The OARRS/MAPPS database was reviewed today and found to be appropriate. No indication of medication diversion, or non compliance. RYANNE Chahal 11/26/23 0838 documented in this encounter [facility] 11-22-2023 History of Presen t illness Narrative [address] [facility] [address] Patient: Deepti Landon [facility] Date of : 1980 Encounter Date: 11/22/2023 History of Present Illness: The patient is a 43 y.o. female, an established patient, and is here for Chief Complaint Patient presents with throbbing Throbbing arm tingling fingers . HPI On Saturday patient turned her head to the left while she was watching TV and she felt a pain in her left neck that radiated to her left shoulder and cause numbness and tingling in her 1st 4 fingers. Her pain has been significant ever since and the numbness and tingling is intermittent in her fingers. It helps to lie on her back because she can not tolerate laying on either side unless she puts her arm over her face. She has been taking Tylenol and Motrin and they are not helping with her pain. 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 She can not remember any traumatic events such as falls or heavy lifting before this incident happened. She denies any weakness in her upper extremities. Problem List Items Addressed This Visit None Visit Diagnoses Neck pain - Primary Past Medical, Family, and Social History Update: The following portions of the patient's history were reviewed and updated as appropriate: allergies, current medications, past family history, past medical history, past social history, past surgical history and problem list. Past Medical History: Diagnosis Date Anxiety Asthma Depression Hypothyroidism Primary hypertension 12/10/2022 Urinary tract infection Visual impairment glasses Past Surgical History: Procedure Laterality Date CERVICAL BIOPSY W/ LOOP ELECTRODE EXCISION CYSTOSCOPY DILATATION URETHRAL N/A 06/03/2019 Performed by Jt Perez MD at [facility] CYSTOSCOPY RETROGRADE PYELOGRAM Bilateral 06/03/2019 Performed by Jt Perez MD at [facility] CYSTOSCOPY WITH INJECTION BOTOX N/A 06/29/2020 Performed by Jt Perez MD at [facility] HYSTERECTOMY 10/2018 KNEE ARTHROSCOPY Right URETHRAL DILATION Current Outpatient Medications Medication Sig Dispense Refill albuterol (PROVENTIL HFA;VENTOLIN HFA) 90 mcg/actuation inhaler inhale 2 puffs by mouth and INTO THE LUNGS every 4 hours if needed 8.5 g 0 albuterol (PROVENTIL,VENTOLIN) 2.5 mg /3 mL (0.083 %) nebulizer solution Inhale 3 mL (2.5 mg total) by nebulization every 6 (six) hours as needed for wheezing or shortness of breath. 75 mL 2 ALPRAZolam (XANAX) 0.25 mg tablet Take 1 tablet (0.25 mg total) by mouth 2 (two) times a day as needed for anxiety. 30 tablet 0 metoprolol succinate XL (TOPROL XL) 25 mg 24 hr tablet take 1 tablet by mouth every morning 30 tablet 2 vortioxetine (TRINTELLIX) 5 mg tablet take 1 tablet by mouth every morning 30 tablet 0 baclofen (LIORESAL) 10 mg tablet Take 1 tablet (10 mg total) by mouth 3 (three) times a day as needed for muscle spasms. 30 tablet 1 predniSONE (DELTASONE) 20 mg tablet Take 1 tablet (20 mg total) by mouth in the morning and 1 tablet (20 mg total) before bedtime. Do all this for 5 days. 10 tablet 0 No current facility-administered medications for this visit. (All medications reviewed and updated by provider since last office visit or hospitalization) Allergies: Patient has no known allergies. Tobacco History: Social History Tobacco Use Smoking Status Former Smokeless Tobacco Never (If patient a smoker, smoking cessation counseling offered) Social History: Social History Substance and Sexual Activity Alcohol Use Yes Comment: occassional Review of Systems: Review of Systems Constitutional: Positive for activity change. HENT: Negative. Respiratory: Negative. Cardiovascular: Negative. Musculoskeletal: Positive for myalgias, neck pain and neck stiffness. Neurological: Positive for numbness. Negative for weakness. Physical Exam: BP 100/70 (BP Site: Left Arm, BP Postition: Sitting) Pulse 89 Temp (!) 33.9 C (93 F) (Oral) Ht 170.2 cm (5' 7 ) Wt 72.8 kg (160 lb 6.4 oz) SpO2 93% BMI 25.12 kg/m Physical Exam Vitals reviewed. Constitutional: Appearance: Normal appearance. HENT: Head: Normocephalic and atraumatic. Musculoskeletal: Left shoulder: No tenderness, bony tenderness or crepitus. Normal range of motion. Normal strength. Normal pulse. Left upper arm: Tenderness (left tricep) present. Left hand: Normal strength. Decreased sensation (1st 4 fingers but no higher). Cervical back: No torticollis, tenderness, bony tenderness or crepitus. Pain with movement present. Decreased range of motion. Comments: Neg empty can sign left Neurological: Mental Status: She is alert. Sensory: Sensory deficit (1st 4 fingers left hand, loss radial side pinprick sensation) present. Motor: No weakness. Deep Tendon Reflexes: Reflex Scores: Tricep reflexes are 2+ on the right side and 0 on the left side. Psychiatric: Mood and Affect: Mood normal. Behavior: Behavior normal. Assessment and Plan: Deepti was seen today for throbbing . Diagnoses and all orders for this visit: Neck pain Other orders - predniSONE (DELTASONE) 20 mg tablet; Take 1 tablet (20 mg total) by mouth in the morning and 1 tablet (20 mg total) before bedtime. Do all this for 5 days. - baclofen (LIORESAL) 10 mg tablet; Take 1 tablet (10 mg total) by mouth 3 (three) times a day as needed for muscle spasms. Follow-up: Pt was offered other NSAIDs such as celebrex but this has not worked well for her in past. Will try burst steroids and muscle relaxant. May use tylenol as well and lidocaine patches. HEP given. Re-chec symptoms in 1 mo and offered appt with Dr. Fragoso for OMT. If no relief consider PT/MRI. RYANNE CHAHAL APRN-CNP 11/22/23 1247 documented in this encounter [facility] 10-26-2023 Miscellaneous Notes Formattin g of this note might be different from the original. Rx sent in. Dot wanted to see her for a recheck. Please set documented in this encounter [facility] 10-26-2023 Telephone encount er Note Rx sent in. Dot wanted to see her for a recheck. Please set [facility] 09-21-2021 Evaluation note Encounter Date Diagnosis Assessment Notes Sep, Contact with and (suspected) exposure to other viral communicable diseases (ICD-10 - Z20.567) Discussed neg covid test in office today. Even though test was negative, if direct exposure occurred, pt should still quarantine for 10 days from onset of sx. Supportive care as directed. Push fluids and rest. Pt is to take otc antipyretic prn for fever and aches. Pt is to take otc cough suppressant prn for cough. Pt is to be re-evaluated after tx if sx worsen or don't improve by pcp or UC. Discussed at length sx of resp distress that would indicate need for immediate ER tx. Sx include but not limited to worsening SOB, wheeze, dyspnea, difficulty swallowing or breathing, and chest pain. Go straight to ER for any of these sx. Pt is to call the office with any questions or concerns regarding dx and tx. Info sheet with info on tx at home, f/u, and quarantine instructions provided to pt today. Pt understood and agreed to tx plan. Sep, Other Additional time spent conducting pre-visit phone call, screening for symptoms, instructions on social distancing, application and removal of PPE, and cleaning of examination room, equipment and supplies was preformed. Patient education given for testing methodology and results. Patient care instructions given in writting by [facility] document. [employer] Other Evaluation note* Diagnosis Neck pain- Primary Cervicalgia [facility] Diagnosis Cervical radiculopathy- Primary Brachial neuritis or radiculitis nos documented [facility] general Narrative - Reported* Type Description Date Medical History asthma Surgical History LAPAROSCOPY Surgical History ABLASION [employer] Other InstructionsNot on filedocumented in this encounter [facility]* Attachments The following attachments cannot be sent through Care Everywhere. * Neck Pain Exercises (Gambian) * Neck Stretches (Gambian) documented in this encounterProCylene Pharmaceuticals SystemInstructionsNot on file documented in this encounterB[facility]'s Summary Purpose Family History No Family History Records FoundNo Family History Records Found Advance Directives No Advanced Directives Records FoundNo Advanced Directives Records Found Additional Source Comments INFORMATION SOURCE (unrecogn ized section and content) DATE CREATED AUTHOR 09/30/2019 [facility] DATE CREATED AUTHOR AUTHOR'S ORGANIZ ATION 11/23/2023 [facility] REASON FOR VISIT (unrecogniz ed section and content) Reason Comments Med Refill Reason Comments throbbing Throbbing arm tingli ng fingers Care Teams (unrecognized sec tion and content) Motor Operator Relationship Specialty Start Date End Date Wilfred Fragoso DO [address], [place] [address] PCP - General Family Medicine 05/20/19 Motor Operator Relationship Specialty Start Date End Date Wilfred Fragoso DO [address], [place] [address] PCP - General Family Medicine 05/20/19 Motor Operator Relationship Specialty Start Date End Date Wilrfed Fragoso DO [address], [place] [address] PCP - General Family Medicine 05/20/19 FOR RECORDS PERTAINING TO PATIENTS WHO ARE OR HAVE BEEN ENROLLED IN A CHEMICAL DEPENDENCY/SUBSTANCEABUSE PROGRAM, SOME INFORMATION MAY BE OMITTED. This clinical summary was aggregated from multiple sources. Caution should be exercised in using it in the provision of clinical care. This summary normalizes information from multiple sources, and as a consequence, information in this document may materially change the coding, format and clinical context of patient data. In addition, data may be omitted in some cases. CLINICAL DECISIONS SHOULD BE BASED ON THE PRIMARY CLINICAL RECORDS. [employer] [facility] provides no warranty or guarantee of the accuracy or completeness of information in this document.
--- NOTE | 2023-12-10 09:23 | ED_ITS ---
HPI - General Adult General Chief complaint: Extremity Problem, Nontraumatic Stated complaint: UPPER EXTREMITY PAIN Time Seen by Provider: 12/10/23 09:22 Source: patient Mode of arrival: walk-in Limitations: no limitations History of Present Illness HPI narrative: Patient here with ongoing problem of extreme pain shooting down the left side of her neck into her upper arm and forearm. She has had this for approximately 3 weeks. She has had conventional plain x-rays but no CT or MRI. She has not noticed any obvious weakness. She has been to a chiropractor she has been on NSAIDs. She is on a short-term course of steroids and was also on gabapentin 300 mg once a day. She has no improvement of her symptoms. She is going out of town to [place] this weekend and is concerned. She has no previous cervical spine problems or surgery. She does have other medical problems including hypertension. She is right-handed dominant. She states the problem started abruptly when she was turning her head to the side about 3 weeks ago. She says she can reproduce the symptoms by tilting her head and in extension. Related Data Home Medications ?Medication ?Instructions ?Recorded ?Confirmed albuterol sulfate 90 mcg/actuation 2 puff inhalation Q4H PRN 03/10/23 03/10/23 aerosol inhaler shortness of breath or wheezing alprazolam 0.25 mg tablet 0.25 mg PO BID PRN anxiety 03/10/23 03/10/23 fluoxetine 10 mg capsule 10 mg PO DAILY 03/10/23 03/10/23 metoprolol succinate 25 mg 25 mg PO DAILY 03/10/23 03/10/23 tablet,extended release 24 hr Allergies Allergy/AdvReac Type Severity Reaction Status Date / Time No Known Drug Allergies Allergy Verified 03/10/23 11:02 [facility] Medical History (Updated 12/10/23 @ 09:58 by Tate Ochoa MD) History of meniscal tear ?Z87.828 - Personal history of other (healed) physical injury and trauma (ICD-10) Social History Smoking status: Former smoker Exam Narrative Exam Narrative: Well-hydrated well-nourished pleasant patient. She does have a history of hypertension her blood pressure is up a little bit. In a normal sitting position she does not have a lot of discomfort but when she extends her neck she says it causes discomfort. Her skin is warm and dry her mucous membranes are moist and pink. Neurological examination the upper extremity shows some weakness of her thumb extensor. She has absent triceps reflex on the left with 2+ triceps on the right. Her biceps and brachial radialis reflex on the left are normal. 2-point discrimination is normal bilaterally. There is no muscle atrophy. There is good pulses to the extremities bilaterally. Constitutional Vital Signs, click to edit/add: Last Vital Signs Temp 97.7 F 12/10/23 08:57 Pulse 81 12/10/23 08:57 Resp 18 12/10/23 08:57 BP 145/100 H 12/10/23 08:57 Pulse Ox 98 12/10/23 08:57 O2 Del Method Room Air 12/10/23 08:57 Course Vital Signs Vital signs: Vital Signs Temperature 97.7 F 12/10/23 08:57 Pulse Rate 81 12/10/23 08:57 Respiratory Rate 18 12/10/23 08:57 Blood Pressure 145/100 H 12/10/23 08:57 Pulse Oximetry 98 12/10/23 08:57 Oxygen Delivery Method Room Air 12/10/23 08:57 Temperature 97.7 F 12/10/23 08:57 Pulse Rate 81 12/10/23 08:57 Respiratory Rate 18 12/10/23 08:57 Blood Pressure 145/100 H 12/10/23 08:57 Pulse Oximetry 98 12/10/23 08:57 Oxygen Delivery Method Room Air 12/10/23 08:57 Medical Decision Making [facility] Narrative Medical decision making narrative: Patient presents with 3 weeks of symptoms in her left arm. Objective findings include loss of reflexes and weakness of her thumb. I was able to speak with Dr. Saez, local neurologist who will be able to see her in the office. Will place her on gabapentin at the increasing dose as well as a repeat dose of steroids. She will be given a copy of her CT scan. Discharge Plan Discharge Stand Alone Forms: Portal Instructions Chief Complaint: Extremity Problem, Nontraumatic Clinical Impression: Cervical disc disorder with radiculopathy Patient Disposition: Home, Self-Care Time of Disposition Decision: 09:58 Prescriptions / Home Meds: No Action metoprolol succinate 25 mg tablet extended release 24 hr 25 mg PO DAILY albuterol sulfate 90 mcg/actuation HFA aerosol inhaler 2 puff INHALATION Q4H PRN (Reason: shortness of breath or wheezing) alprazolam 0.25 mg tablet 0.25 mg PO BID PRN (Reason: anxiety) fluoxetine 10 mg capsule 10 mg PO DAILY Print Language: Indonesian Additional Instructions: Gabapentin 300 mg twice a day/prednisone/follow-up with Dr. Saez Referrals: VINCENZO HOOVER [Primary Care Provider] - 1 week
--- NOTE | 2023-12-10 09:26 | CT_ITS ---
The [address] [address] Patient Name: DEEPTI QUEZADA MRN: [id number] date: 1980 Sex: F Assigned Patient Location: ER Current Patient Location: ER Accession/Order Number: [id number] Exam Date: 12/10/2023 09:32 Report Date: 12/10/2023 09:55 At the request of: CARLEE PAGE Procedure: CT cervical spine wo con EXAM TYPE: CT cervical spine wo con EXAM DATE AND TIME: 12/10/2023 9:32 AM EDT INDICATION: 43 years old Female with neck pain and radiculopathy COMPARISON: Radiographs 11/28/2023 TECHNIQUE: CT imaging of the cervical spine was obtained without contrast. Dose reduction techniques were achieved by using automated exposure control and/or adjustment of mA and/or kV according to patient size and/or use of iterative reconstruction technique. FINDINGS: There is normal cervical lordosis. No subluxation. Vertebral body heights are maintained. No fracture. Craniocervical junction is normal in appearance. Atlantodental distance is not widened. No prevertebral soft tissue swelling. Mild multilevel degenerative disc and facet arthropathy, most significant the C5-C6 level. There is broad-based disc bulge with mild spinal canal stenosis. Mild to moderate bilateral neural foraminal stenosis. No CT evidence of focal large central disc herniation, severe spinal canal or severe neural foraminal stenosis. The lung apices are clear. CT/CT cervical spine wo con IMPRESSION: Mild multilevel degenerative disc and facet arthropathy, most notable at the C5-C6 level. No CT evidence of severe spinal canal stenosis. No acute fracture. Electronically authenticated by: OLMAN HOLLY Date: 12/10/2023 09:55
== END 2023-12-10 10:11 | disposition home or self-care (01) ==
PROVIDERS: Emergency Provider Emergency Medicine Emergency Medical Services; PCP Family Medicine
DX: M50.10 Cervical disc disorder with radiculopathy, unspecified cervical region (principal); Z79.899 Other long term (current) drug therapy; Z87.891 Personal history of nicotine dependence
CPT/HCPCS: 72125; 99284

== ENCOUNTER 2025-06-05 09:25 | Outpatient (OUT) | payer OTHER, SELFPAY ==
--- OUTSIDE RECORDS SUMMARY | 2025-06-05 09:31 | XMS_ITS | CCD ---
Author Organization [facility] Care Team Providers Care Front End Web Designer Name Role Phone JESUS ESTRADA Admitting Unavailable KARASIK, JESUS Attending Unavailable FURLONG, WILFRED Meng Primary Care Unavailable KARASIK, JESUS Admitting Unavailable KARASIK, JESUS Attending Unavailable FURLONG, WILFRED Meng Primary Care Unavailable KARASIK, JESUS Consulting Unavailable KARASIK, JESUS Admitting Unavailable KARASIK, JESUS Attending Unavailable FURLONG, WILFRED Meng Primary Care Unavailable KARASIK, JESUS Consulting Unavailable BURT KEYES Consulting Unavailable KARASIK, JESUS Admitting Unavailable KARASIK, JESUS Attending Unavailable FURLONG, WILFRED Meng Primary Care Unavailable KARASIK, JESUS Consulting Unavailable KARASIK, JESUS Admitting Unavailable KARASIK, JESUS Attending Unavailable KARASIK, JESUS Admitting Unavailable KARASIK, JESUS Attending Unavailable REQUEST, NONE LISTED Primary Care Unavailable KARASIK, JESUS Consulting Unavailable SANCHEZ HARRISON V Consulting Unavailable KARASIK, JESUS Admitting Unavailable KARASIK, JESUS Attending Unavailable KARASIK, JESUS Consulting Unavailable Giacomo Juarez Unavailable Wilfred Fragoso DO Primary Care Provider WILFRED FRAGOSO Referring Unavailable WILFRED FRAGOSO Primary Care Unavailable WILFRED FRAGOSO Attending Unavailable WILFRED FRAGOSO Referring Unavailable WILFRED FRAGOSO Primary Care Unavailable Wilfred Fragoso DO Primary Care Provider Ilia KULKARNI, Yuri Frank Emergency Provider [phone] Wilfred Fragoso DO Primary Care Provider Wilfred Fragoso MD Primary Care Provider Deepti Saez DO Unavailable Wilfred Fragoso DO Primary Care Provider Jae Alcaraz MD Emergency Provider [phone] WILFRED FRAGOSO G Attending Unavailable FURLONG, WILFRED G Referring Unavailable FURLONG, WILFRED G Primary Care Unavailable FURLONG, WILFRED G Attending Unavailable FURLONG, WILFRED G Referring Unavailable FURLONG, WILFRED G Primary Care Unavailable FURLONG, WILFRED G Attending Unavailable FURLONG, WILFRED G Referring Unavailable FURLONG, WILFRED G Primary Care Unavailable FURLONG, WILFRED G Attending Unavailable FURLONG, WILFRED G Referring Unavailable FURLONG, WILFRED G Primary Care Unavailable BRIANNALONG, WILFRED G Attending Unavailable BRIANNALONG, WILFRED G Referring Unavailable FURLONG, WILFRED G Primary Care Unavailable MICHELE MEDRANO Attending Unavailable RODRÍGUEZ CAMPOS Attending Unavailable RODRÍGUEZ CAMPOS Referring Unavailable Yuri Morillo Admitting Unavailable Yuri Morillo Attending Unavailable Briannalong, Wilfred [facility] Unavailable Jae Alcaraz Jr Admitting Unavailable Jae Alcaraz Jr Attending Unavailable Medications Current Medications Medication Drug Class(es) Dates Sig (Normalized) Sig (Original) albuterol 0.83 mg/ml inhalation solution (20 sources) beta2-Adrenergic Agonist Start: 11-15-2024 take 1 puff(s) by inhalation every four to six hours as needed for wheezing Albuterol Sulfate 90 mcg/actuation HFA aerosol inhaler Active 2 PUFF INHALATION EVERY 4-6 HOURS as needed for shortness of breath or wheezing November 15, 2024 1:00am Complies with drug therapy Start: 11-15-2024 Albuterol Sulf ate 90 mcg/actuation HFA aerosol inhaler Active INHALATION November 15, 2024 12:00am Start: 10-15-2024 End: 12-30-2024 take 2 puff(s) by inhalation every four hours as needed for wheezing albuterol (PROVENTIL HFA;VENTOLIN HFA) 90 mcg/actuation inhaler Indications: Moderate persistent asthma without complication Inhale 2 puffs every 4 (four) hours as needed for wheezing. 18 g 1 11/20/2024 12/30/2024 Discontinued (Therapy completed) Start: 06-01-2024 End: 10-15-2024 take 2 puff(s) by mouth every four hours as needed albuterol (PROVENTIL HFA;VENTOLIN HFA) 90 mcg/actuation inhaler Indications: Mild intermittent asthma without complication INHALE 2 PUFFS BY MOUTH & into the lungs EVERY 4 HOURS NEEDED 8.5 g 09/30/2024 10/15/2024 Discontinued (Formulary change) Start: 09-10-2023 take 2 puff(s) by in halation every four hours albuterol HFA 90 mcg/act inhaler Inhale 2 puffs every 4 (four) hours if needed 09/10/2023 Active Start: 07-11-2023 End: 11-20-2024 take 3 mL by inhalation every six hours as needed for wheezing albuterol (PROVENTIL,VENTOLIN) 2.5 mg /3 mL (0.083 %) nebulizer solution Indications: Mild intermittent asthma without complication Inhale 3 mL (2.5 mg total) by nebulization every 6 (six) hours as needed for wheezing or shortness of breath. 75 mL 2 11/20/2024 Active take 2 puff(s) by in halation every four hours as needed Albuterol Sulfate HFA 108 (90 Base) MCG/ACT 2 puffs as needed Inhalation every 4 hrs Active albuterol-budesonide (AIRSUPRA) 90-80 mcg/actuation HFA aerosol inhaler (9 sources) Start: 03-26-2025 take 2 puff(s) by inhalation every four hours as needed albuterol-budesonide (AIRSUPRA) 90-80 mcg/actuation HFA aerosol inhaler Inhale 2 puffs every 4 (four) hours as needed (wheeze, SOB). 10.7 g 2 03/26/2025 Active Start: 12-30-2024 End: 03-26-2025 take 2 puff(s) by inhalation every four hours as needed albuterol-budesonide (AIRSUPRA) 90-80 mcg/actuation HFA aerosol inhaler Inhale 2 puffs every 4 (four) hours as needed (wheeze, SOB). 10.7 g 2 12/30/2024 03/26/2025 Discontinued (Reorder) Start: 04-16-2025 take 2 puff(s) by in halation every four hours as needed albuterol-budesonide (AIRSUPRA) 90-80 mcg/actuation HFA aerosol inhaler Inhale 2 puffs every 4 (four) hours as needed (wheeze, SOB). 10.7 g 2 12/30/2024 Active ALPRAZolam 0.25 mg oral tablet (20 sources) Benzodiazepine Start: 05-08-2023 End: 03-23-2025 take 1 tablet by mouth twice daily as needed for anxiety ALPRAZolam (Xanax) 0.25 MG tablet Take 0.25 mg by mouth 2 (two) times a day as needed for anxiety 05/08/2023 Active Budesonide / formoterol (17 sources) Corticosteroid, beta2-Adrenergic Agonist Start: 12-30-2024 take 2 puff(s) by inhalation in the morning budesonide-formot Darion (SYMBICORT) 80-4.5 mcg/actuation inhaler Indications: Moderate persistent asthma without complication Inhale 2 puffs in the morning and 2 puffs before bedtime. 10.2 g 12 12/30/2024 Active Start: 11-15-2024 End: 05-13-2025 Budesonide-Formoterol 80-4.5 mcg/actuation HFA aerosol inhaler Discontinued INHALATION November 15, 2024 1:00am May 13, 2025 10:51pm Start: 10-14-2024 End: 12-30-2024 take 2 puff(s) by inhalation in the morning budesonide-formoteroL (SYMBICORT) 80-4.5 mcg/actuation inhaler Indications: Moderate persistent asthma without complication Inhale 2 puffs in the morning and 2 puffs before bedtime. 10.2 g 12 10/14/2024 12/30/2024 Discontinued (Reorder) Start: 10-14-2024 take 2 puff(s) by in halation in the morning budesonide-formoteroL (SYMBICORT) 80-4.5 mcg/actuation inhaler Indications: Moderate persistent asthma without complication Inhale 2 puffs in the morning and 2 puffs before bedtime. 10.2 g 12 10/14/2024 Active fluconazole 150 mg oral tablet (1 source) Azole Antifungal Start: 04-07-2025 End: 04-07-2025 take 1 tablet by mouth once fluconazole (DIFLUCAN) 150 mg tablet Take 1 tablet (150 mg total) by mouth once for 1 dose. 1 tablet 04/07/2025 04/07/2025 Active gabapentin 300 mg oral capsule (16 sources) Anti-epileptic Agent Start: 05-14-2025 gabapentin (NEURONTIN) 300 mg capsule Take 1 capsule (300 mg total) by mouth. 05/14/2025 Active Start: 12-13-2023 End: 04-27-2025 take 1 capsule by mouth three times daily gabapentin (NEURONTIN) 300 mg capsule Indications: Cervical radiculopathy Take 1 capsule (300 mg total) by mouth 3 (three) times a day. 21 capsule 12/13/2023 12/30/2024 Discontinued (Therapy completed) 24 hr metoprolol succinate 25 mg extended release oral tablet (16 sources) beta-Adrenergic Umer Start: 05-15-2025 take 1 tablet by mouth every twenty-four hours in the morning metoprolol succinate XL (TOPROL XL) 25 mg 24 hr tablet Take 1 tablet (25 mg total) by mouth in the morning. 30 tablet 1 05/15/2025 Active Start: 06-03-2023 End: 12-30-2024 take 1 tablet by mouth once daily in the morning metoprolol succinate XL (TOPROL XL) 25 mg 24 hr tablet Indications: Primary hypertension take 1 tablet by mouth every morning 30 tablet 2 06/03/2023 12/30/2024 Discontinued (Therapy completed) End: 04-27-2025 take 1 tablet by mouth every twenty-four hours in the morning metoprolol succinate XL (Toprol-XL) 25 MG 24 hr tablet Take 25 mg by mouth in the morning. 04/27/2025 Discontinued predniSONE 20 mg oral tablet (5 sources) Start: 05-14-2025 End: 05-19-2025 take 1 tablet by mouth in the morning, then take 1 tablet by mouth at bedtime predniSONE (DELTASONE) 20 mg tablet Take 1 tablet (20 mg total) by mouth in the morning and 1 tablet (20 mg total) before bedtime. Do all this for 5 days. 10 tablet 05/14/2025 05/19/2025 Active Start: 11-15-2024 End: 05-13-2025 take 2 tablets by mouth once daily Prednisone 20 mg tablet Discontinued 40 MG PO Daily 10 5 November 15, 2024 1:00am May 13, 2025 10:51pm vortioxetine 5 mg oral tablet (11 sources) Start: 10-28-2023 End: 12-30-2024 take 1 tablet by mouth once daily in the morning vortioxetine (TRINTELLIX) 5 mg tablet take 1 tablet by mouth every morning 30 tablet 10/28/2023 12/30/2024 Discontinued (Therapy completed) Completed/Discontinued Medications Medication Drug Class(es) Dates Sig (Normalized) Sig (Original) benzonatate 200 mg oral capsule (2 sources) Non-narcotic Antitussive Start: 11-17-2024 End: 05-13-2025 take 1 capsule by mouth three times daily as needed for cough Benzonatate 200 mg capsule Discontinued 200 MG PO Three times daily as needed for cough November 17, 2024 1:00am May 13, 2025 10:51pm dextromethorphan hydrobromide 30 mg / pyrilamine maleate 30 mg oral tablet (2 sources) Uncompetitive B-innnnp-J-aspartat e Receptor Antagonist, Sigma-1 Agonist Start: 11-15-2024 End: 05-13-2025 take 1 tablet by mouth every six hours as needed Pyrilamine-Dextro methorphan ([place] Dmt) 30-30 mg tablet Discontinued 1 TAB PO Every 6 hours as needed for cold symptoms 10 3 November 15, 2024 1:00am May 13, 2025 10:51pm FLUoxetine 10 mg oral capsule (3 sources) Serotonin Reuptake Inhibitor End: 04-27-2025 take 1 capsule by mouth once daily FLUoxetine (PROzac) 10 MG capsule Take 10 mg by mouth Daily 04/27/2025 Discontinued (Therapy completed) fluticasone propionate 0.05 mg/actuat metered dose nasal spray (2 sources) Corticosteroid Start: 11-17-2024 End: 05-13-2025 take 1 spray(s) nasal route every twelve hours as needed for congestion Fluticasone Propionate (Flonase Allergy Relief) 50 mcg/actuation spray,suspension Discontinued 1 SPRAY INTRANASAL Every 12 hours as needed for nasal congestion November 17, 2024 1:00am May 13, 2025 10:51pm administer into each nostril fluticasone / salmeterol (6 sources) Corticosteroid, beta2-Adrenergic Agonist Start: 10-08-2024 End: 10-12-2024 take 1 puff(s) by inhalation in the morning fluticasone propion-salmetero L (ADVAIR DISKUS) 100-50 mcg/dose DISKUS Inhale 1 puff in the morning and 1 puff before bedtime. 1 each 10/08/2024 10/12/2024 Discontinued (Formulary change) Start: 10-08-2024 take 1 puff(s) by in halation in the morning fluticasone propion-salmeteroL (ADVAIR DISKUS) 100-50 mcg/dose DISKUS Inhale 1 puff in the morning and 1 puff before bedtime. 1 each 10/08/2024 Active Start: 09-30-2024 End: 10-08-2024 take 1 puff(s) by inhalation in the morning fluticasone propion-salmeteroL (WIXELA INHUB) 100-50 mcg/dose DISKUS Indications: Mild intermittent asthma without complication Inhale 1 puff in the morning and 1 puff before bedtime. 60 each 09/30/2024 10/08/2024 Discontinued (Formulary change) Start: 09-30-2024 take 1 puff(s) by in halation in the morning fluticasone propion-salmeteroL (WIXELA INHUB) 100-50 mcg/dose DISKUS Indications: Mild intermittent asthma without complication Inhale 1 puff in the morning and 1 puff before bedtime. 60 each 09/30/2024 Active Start: 09-01-2024 End: 09-30-2024 take 1 puff(s) by inhalation in the morning fluticasone propion-salmeteroL (WIXELA INHUB) 100-50 mcg/dose DISKUS Inhale 1 puff in the morning and 1 puff before bedtime. 60 each 09/01/2024 09/30/2024 Discontinued (Reorder) 30 actuat fluticasone furoate 0.1 mg/actuat / vilanterol 0.025 mg/actuat dry powder inhaler (4 sources) Corticosteroid, beta2-Adrenergic Agonist Start: 10-12-2024 End: 10-14-2024 fluticasone furoate-vilanteroL (BREO ELLIPTA) 100-25 mcg/dose blister with device 1 puff in morning 60 each 5 10/12/2024 10/14/2024 Discontinued (Formulary change) Start: 10-12-2024 End: 10-12-2024 take 1 puff(s) by inhalation in the morning fluticasone furoate-vilanteroL (BREO ELLIPTA) 100-25 mcg/dose blister with device Inhale 1 puff in the morning. 28 each 10/12/2024 10/12/2024 Discontinued Problems Active Problems Problem Classification Problem Date Documented Date Episodic/Chronic Abdominal pain (7 sources) Unspecified abdominal pain; Translations: [Left lower quadrant pain] Onset: 12-24-2018 04-27-2025 Episodic Abdominal pain (1 source) Pelvic and perineal pain; Translations: [PELVIC AND PERINEAL PAIN] Onset: 11-05-2018 Acquired foot deformities (4 sources) Left foot drop; Translations: [Foot drop, left foot] 05-26-2025 Episodic Anxiety disorders (20 sources) Anxiety; Translations: [Anxiety disorder, unspecified] Onset: 12-10-2022 12-10-2022 Chronic Asthma (20 sources) Unspecified asthma, uncomplicated; Translations: [Mild intermittent asthma] Onset: 11-05-2018 09-30-2024 Chronic Diseases of white blood cells (1 source) Elevated white blood cell count, unspecified; Translations: [ELEVATED WHITE BLOOD CELL COUNT UNS] Onset: 11-05-2018 Chronic Essential hypertension (20 sources) Essential hypertension; Translations: [Essential (primary) hypertension] Onset: 12-10-2022 Resolved: 12-30-2024 12-10-2022 Chronic Immunizations and screening for infectious disease (4 sources) Encounter for screening for human papillomavirus (HPV); Translations: [Contact with and (suspected) exposure to other viral communicable diseases] Onset: 09-29-2019 Resolved: 09-21-2021 Episodic Influenza (5 sources) Influenza due to Influenza A virus; Translations: [Influenza due to other identified influenza virus with other respiratory manifestations] 11-15-2024 Episodic Menopausal disorders (2 sources) Menopausal symptom; Translations: [Menopausal and female climacteric states] 04-27-2025 Chronic Mycoses (1 source) Candidiasis of vulva and vagina; Translations: [CANDIDIASIS OF VULVA AND VAGINA] Onset: 09-29-2019 Episodic Other diseases of bladder and urethra (18 sources) Mass of urinary bladder; Translations: [Other specified disorders of bladder] Onset: 07-01-2019 05-04-2020 Chronic Other female genital disorders (5 sources) Abnormal uterine and vaginal bleeding, unspecified; Translations: [ABNORMAL UTERINE VAGINAL BLEED UNS] Onset: 10-28-2018 Chronic Other female genital disorders (2 sources) Pain in female genitalia on intercourse; Translations: [Unspecified dyspareunia] 04-27-2025 Chronic Other nervous system disorders (1 source) Left leg peripheral neuropathy; Translations: [Unspecified mononeuropathy of left lower limb] 05-14-2025 Chronic Other nervous system disorders (1 source) Anesthesia of skin; Translations: [Anesthesia of skin] Onset: 05-13-2025 Episodic Other screening for suspected conditions (not mental disorders or infectious disease) (9 sources) Encounter for screening for malignant neoplasm of cervix; Translations: [Encounter for screening mammogram for malignant neoplasm of breast] Onset: 09-24-2019 04-26-2025 Episodic Prolapse of female genital organs (2 sources) Cystocele; Translations: [Cystocele, unspecified] 04-27-2025 Chronic Spondylosis; intervertebral disc disorders; other back problems (4 sources) Lumbar radiculopathy; Translations: [Radiculopathy, lumbar region] 05-26-2025 Episodic Unclassified (1 source) chest cold , phlem, Onset: 09-01-2024 Past or Other Problems Problem Classification Problem Date Documented Da te Episodic/Chronic Acute posthemorrhagic anemia (1 source) Acute posthemorrhagic anemia; Translations: [ACUTE POSTHEMORRHAGIC ANEMIA] Onset: 11-05-2018 Episodic Calculus of urinary tract (18 sources) Kidney stone; Translations: [Calculus of kidney] Onset: 05-27-2019 05-27-2019 Episodic Genitourinary symptoms and ill-defined conditions (20 sources) Blood in urine; Translations: [Hematuria, unspecified] Onset: 05-27-2019 05-04-2020 Episodic Inflammatory diseases of female pelvic organs (1 source) Female pelvic peritoneal adhesions (postinfective); Translations: [FE PELV PERITON ADHES POSTINFECTIVE] Onset: 11-05-2018 Episodic Mood disorders (19 sources) Depressive disorder; Translations: [Depression] Resolved: 12-30-2024 12-10-2022 Chronic Mood disorders (18 sources) Mood disorders Onset: 12-13-2023 Resolved: 05-20-2025 12-13-2023 Other connective tissue disease (20 sources) Pain in left arm; Translations: [Pain in left arm] Onset: 01-23-2024 06-01-2024 Episodic Other female genital disorders (4 sources) Unspecified condition associated with female genital organs and menstrual cycle; Translations: [UNS COND W/FE GENIT ORGN MENST CYCL] Onset: 06-04-2019 Episodic Other gastrointestinal disorders (1 source) Constipation; Translations: [Constipation] Episodic Other lower respiratory disease (1 source) Shortness of breath; Translations: [Shortness of breath] Onset: 11-17-2024 Episodic Other nervous system disorders (20 sources) Paresthesia; Translations: [Paresthesia of skin] Onset: 01-23-2024 06-01-2024 Episodic Other nervous system disorders (1 source) Paresthesia of skin; Translations: [Paresthesia of skin] Onset: 06-01-2024 Episodic Residual codes; unclassified (1 source) Acquired absence of both cervix and uterus; Translations: [ACQUIRED ABSENCE BOTH CERVIX AND UTERUS] Onset: 06-10-2019 Episodic Residual codes; unclassified (20 sources) Shooting pain; Translations: [Pain, unspecified] Onset: 01-23-2024 06-01-2024 Episodic Screening and history of mental health and substance abuse codes (1 source) Personal history of nicotine dependence; Translations: [PERSONAL HISTORY OF NICOTINE DEPEND] Onset: 11-05-2018 Episodic Urinary tract infections (1 source) Urinary tract infectious disease Onset: 07-17-2024 Episodic Results Test Name Value Interpretation Reference Range Facility MR LUMBAR SPINE WO CONTRASTo n 06-01-2025 MR LUMBAR SPINE WO CONTRAST EXAMINATION/TECHNIQUE: MR LUMBAR SPINE WO CONTRAST HISTORY: Low back pain. Left foot drop. No known injury. Denies prior surgery to the lumbar spine. COMPARISON: Radiographs 05/14/2025. RESULT: Some limitations from motion. Counting reference: Lumbosacral junction. For the purposes of this report, L5-S1 is considered the last well-formed disc space. 5 lumbar type vertebral bodies. Alignment: Alignment essentially anatomic. Bone marrow signal: No evidence for acute or chronic fracture. No destructive osseous lesions. Conus: The conus is within normal limits of signal intensity and morphology. Paraspinal soft tissues: Grossly unremarkable. Lower thoracic spine: Visualized lower thoracic canal and foramina without significant narrowing. T12-L1: No significant canal or foraminal narrowing. L1-L2: No significant canal or foraminal narrowing. L2-L3: No significant canal or foraminal narrowing. L3-L4: Disc bulge. Facet degenerative changes. Ligamentous hypertrophy. No significant canal or foraminal narrowing. L4-L5: Annular fissure. Disc bulge with tiny central zone disc protrusion. Facet degenerative changes. Ligamentous hypertrophy. No significant canal or foraminal narrowing. L5-S1: Annular fissure. Disc bulge. Possible small central zone protrusion. Facet degenerative changes. No significant canal or foraminal narrowing. Sacrum and iliac wings: Multiple incidental Tarlov cysts, otherwise unremarkable. IMPRESSION: Degenerative changes lumbar spine as discussed. ELECTRONICALLY SIGNED BY: Rm Almonte MD Normal Not Available Appearance of UrineOrdered B y: Jae Alcaraz on 05-14-2025 Appearance (U) Cloudy Critically abnormal [facility] Comment on above: Order Comment: Name Collection Type:: Clean-Voided Midstream Performed By: #### A DDONUAPLUS ####[facility] [id number] Bacteria [Presence] in Urine by AutomatedOrdered By: Jae Alcaraz on 05-14-2025 Bacteria Auto Ql (U) Rare [HPF] None Seen [facility] Basic Metabolic Panelon 04-17 Creatinine Clr Calc Pharmacy 99.94 Normal [facility] Comment on above: Performed By: #### C BC, PT, BMP, HS TROP, CK, MG, PTT #### [facility] [address] GFR/1.73 sq M.predicted MDRD (S/P/Bld) [Vol rate/Area] mL/min/{1.73_m2} Normal [facility] Comment on above: Performed By: #### C BC, PT, BMP, HS TROP, CK, MG, PTT #### [facility] [address] Basophils [#/volume] in Bloo d by Automated countOrdered By: Jae Alcaraz on 05-14-2025 Basophils (Bld) [#/Vol] 0.1 10*3/uL Normal 0.0-0.2 [facility] Comment on above: Result Comment: PERF ORMED BY: [place] [address] PATHOLOGIST [employer] KRYSTIAN HILL M.D. Performed By: #### C BC, PT, BMP, HS TROP, CK, MG, PTT #### [address] Basophils/100 leukocytes in Blood by Automated countOrdered By: Jae Alcaraz on 05-14-2025 Basophils/100 WBC (Bld) 1.5 % Normal . [facility] Comment on above: Performed By: #### C BC, PT, BMP, HS TROP, CK, MG, PTT #### [facility] [address] Bilirubin Test strip Ql (U)O rdered By: Jae Alcaraz on 05-14-2025 Bilirubin Ql (U) Negative Negative [facility] CT angio chest PE protocolon 05-14-2025 CT angio chest PE protocol [facility] [place] [address] CT Scan Report Signed Patient: Deepti Arellano MR#: [id number] 3 : 1980 Acct:[id number] Age/Sex: 44 / F ADM Date: 05/13/25 Loc: ER Room: Type: [facility] ER Attending Dr: Copies to: Jae Alcaraz Jr, MD Ordering Provider: Jae Alcaraz Jr, MD Date of Service: 05/14/25 CT/CT angio chest PE protocol: pleuritic pain, BLE edema CT ANGIOGRAM OF THE CHEST, PULMONARY EMBOLISM PROTOCOL: CLINICAL INFORMATION: Bilateral lower extremity edema. COMPARISON: Chest performed earlier today TECHNIQUE: Following intravenous injection of contrast CT scans of the chest were obtained using pulmonary embolism protocol. Coronal and sagittal reconstructed images, as well as volume rendered CT pulmonary angiographic images were also submitted.The CT exam was performed using one or more of the following dose reduction techniques: Automated exposure control, adjustment of the MA and/or Kv according to patient size, or use of the iterative reconstruction technique. FINDINGS: Pulmonary Vasculature: Contrast bolus is adequate for evaluation of pulmonary embolism. Pulmonary trunk appears nondilated. No filling defects are identified to suggest pulmonary embolism. Mediastinum : Thoracic aorta is normal in caliber. No pericardial effusion. No lymphadenopathy. The esophagus is grossly unremarkable. Lungs: No focal consolidation, pneumothorax or pleural effusion. Upper abdomen: No acute findings Soft tissue/bones: Soft tissues surrounding the chest wall demonstrate no acute findings. Osseous structures demonstrate degenerative change. CT/CT angio chest PE protocol IMPRESSION: NO EVIDENCE OF ACUTE PULMONARY EMBOLISM OR PROCESS. Impression dictated by: Kaleb Castillo Jr., D.OJessie 05/14/2025 9:26 AM Dictation Location: [place] [address] Transcribed By: [facility] 05/14/25925 Dictated By: Kaleb Castillo Jr, DO 05/14/25919 Signed By: 05/14/25925 Normal [facility] Calcium [Mass/volume] in Ser um or PlasmaOrdered By: Jae Alcaraz on 05-14-2025 Calcium [Mass/Vol] 9.2 mg/dL Normal 8.6-10.3 [facility] Comment on above: Performed By: #### C BC, PT, BMP, HS TROP, CK, MG, PTT #### [facility] [address] Carbon dioxide, total [Moles /volume] in Serum or PlasmaOrdered By: Jae Alcaraz on 05-14-2025 CO2 [Moles/Vol] 25.4 mmol/L Normal 21.0-31.0 [facility] Comment on above: Performed By: #### C BC, PT, BMP, HS TROP, CK, MG, PTT #### [facility] [address] [place] [id number] [place] Chloride [Moles/volume] in [place] or PlasmaOrdered By: Jae Alcaraz on 05-14-2025 Chloride [Moles/Vol] 107 mmol/L Normal 98-107 [facility] Comment on above: Performed By: #### C BC, PT, BMP, HS TROP, CK, MG, PTT #### [facility] [address] Color of Urine by AutoOrdere d By: Jae Alcaraz on 05-14-2025 Color (U) Light-yellow Normal Yellow [facility] Comment on above: Order Comment: Name Collection Type:: Clean-Voided Midstream Performed By: #### A DDONUAPLUS ####[facility] Complete Blood Count Auto Di ffon 05-14-2025 Mean Corpuscular HGB Conc 34.6 g/dL Normal 32.0-35.0 [facility] Comment on above: Performed By: #### C BC, PT, BMP, HS TROP, CK, MG, PTT #### [address] Monocytes/100 WBC (Bld) 16.33 % Normal 0.00-20.00 [facility] Comment on above: Performed By: #### C BC, PT, BMP, HS TROP, CK, MG, PTT #### [facility] [address] NRBC% 0.0 /100{WBC} Normal 0-0.5 [facility] Comment on above: Performed By: #### C BC, PT, BMP, HS TROP, CK, MG, PTT #### [address] White Blood Count 9.5 [CFU]/mL Normal 3.8-11.6 [facility] Comment on above: Performed By: #### C BC, PT, BMP, HS TROP, CK, MG, PTT #### [facility] [address] Creatine kinase [Enzymatic a ctivity/volume] in Serum or PlasmaOrdered By: Jae Alcaraz on 05-14-2025 CK [Catalytic activity/Vol] 81 U/L Normal 30-223 [facility] Comment on above: Performed By: #### C BC, PT, BMP, HS TROP, CK, MG, PTT #### [facility] [address] Creatinine [Mass/volume] in Serum or PlasmaOrdered By: Jae Alcaraz on 05-14-2025 Creatinine [Mass/Vol] 0.66 mg/dL Normal 0.60-1.20 [facility] Comment on above: Performed By: #### C BC, PT, BMP, HS TROP, CK, MG, PTT #### [facility] [address] Crystals.amorphous [Presence ] in Urine by Computer assisted methodOrdered By: Jae Alcaraz on 05-14-2025 Crystals.amorphous Computer assisted Ql (U) 1+ [HPF] [facility] Dipstick and Microscopicon 0 05-14-2025 Amorphous Crystal,Urine 1+ [HPF] Normal [facility] Comment on above: Order Comment: Name Collection Type:: Clean-Voided Midstream Performed By: #### A DDONUAPLUS ####[place] [id number] [address] Bacteria,Urine Rare Normal None Seen [facility] Comment on above: Order Comment: Name Collection Type:: Clean-Voided Midstream Performed By: #### A DDONUAPLUS ####[place] [address] [address] Bilirubin,Urine Negative Normal Negative The [facility] Comment on above: Order Comment: Name Collection Type:: Clean-Voided Midstream Performed By: #### A DDONUAPLUS ####[address] Glucose Ql (U) Normal Normal Normal [facility] Comment on above: Order Comment: Name Collection Type:: Clean-Voided Midstream Performed By: #### A DDONUAPLUS ####[address] Hyaline Casts,Urine None Normal 0-8 [facility] Comment on above: Order Comment: Name Collection Type:: Clean-Voided Midstream Result Comment: PERF ORMED BY: [facility] [address] [facility] [id number] PATHOLOGIST [employer] KRYSTIAN HILL M.D. Performed By: #### A DDONUAPLUS ####[address] [address] [facility] Nitrite,Urine Negative Normal Negative [facility] Comment on above: Order Comment: Name Collection Type:: Clean-Voided Midstream Performed By: #### A DDONUAPLUS ####[address] [address] [facility] Occult Blood,Urine Negative Normal Negative The [facility] Comment on above: Order Comment: Name Collection Type:: Clean-Voided Midstream Result Comment: PERF ORMED BY: [facility] [address] [place] [address] PATHOLOGIST [employer] KRYSTIAN HILL M.D. Performed By: #### A DDONUAPLUS ####[place] [id number] [facility] Protein,Urine Negative Normal Negative [facility] Comment on above: Order Comment: Name Collection Type:: Clean-Voided Midstream Performed By: #### A DDONUAPLUS ####[place] [id number] [facility] RBC,Urine 1-2 Normal 0-4 [facility] Comment on above: Order Comment: Name Collection Type:: Clean-Voided Midstream Performed By: #### A DDONUAPLUS ####[address] [address] [facility] Specificy [place],Urine 1.012 Normal 1.001-1.03 0 [facility] Comment on above: Order Comment: Name Collection Type:: Clean-Voided Midstream Performed By: #### A DDONUAPLUS ####[address] [address] [place] Squamous Epithelial Cell,Urine 1-2 Normal 0-2 [facility] Comment on above: Order Comment: Name Collection Type:: Clean-Voided Midstream Performed By: #### A DDONUAPLUS ####[address] [address] [place] Urobilinogen,Urine Normal Normal Normal [facility] Comment on above: Order Comment: Name Collection Type:: Clean-Voided Midstream Performed By: #### A DDONUAPLUS ####[place] [id number] [address] WBC,Urine 1-2 Normal 0-4 [facility] Comment on above: Order Comment: Name Collection Type:: Clean-Voided Midstream Performed By: #### A DDONUAPLUS ####[address] Eosinophils [#/volume] in Bl ood by Automated countOrdered By: Jae Alcaraz on 05-14-2025 Eosinophils (Bld) [#/Vol] 0.5 10*3/uL High 0.0-0.45 [facility] Comment on above: Performed By: #### C BC, PT, BMP, HS TROP, CK, MG, PTT #### [address] Eosinophils/100 leukocytes i n Blood by Automated countOrdered By: Jae Alcaraz on 05-14-2025 Eosinophils/100 WBC (Bld) 5.5 % Normal . [facility] Comment on above: Performed By: #### C BC, PT, BMP, HS TROP, CK, MG, PTT #### [facility] [address] Epithelial cells.squamous [# /area] in Urine sediment by Automated countOrdered By: Jae Alcaraz on 05-14-2025 Epithelial cells.squamous Auto (Urine sed) [#/Area] 1-2 [HPF] 0-2 [facility] Erythrocyte distribution wid th [Ratio] by Automated countOrdered By: Jae Alcaraz on 05-14-2025 Erythrocyte distribution width (RBC) [Ratio] 12.9 % Normal 11.9-15.3 [facility] Comment on above: Performed By: #### C BC, PT, BMP, HS TROP, CK, MG, PTT #### [facility] [address] Erythrocytes [#/area] in Uri ne sediment by Automated countOrdered By: Jae Alcaraz on 05-14-2025 RBC Auto (Urine sed) [#/Area] 1-2 [HPF] 0-4 [facility] Erythrocytes [#/volume] in B lood by Automated countOrdered By: Jae Alcaraz on 05-14-2025 RBC (Bld) [#/Vol] 3.83 10*6/uL Normal 3.60-5.00 [facility] Comment on above: Performed By: #### C BC, PT, BMP, HS TROP, CK, MG, PTT #### [facility] [address] Glomerular filtration rate [ Volume Rate/Area] in Serum, Plasma or Blood by CreatinineOrdered By: Jae Alcaraz on 05-14-2025 Glomerular filtration rate [Volume Rate/Area] in Serum, Plasma or Blood by Creatinine > 60.0 mL/Min [facility] Glucose [Mass/volume] in Ser um or PlasmaOrdered By: Jae Alcaraz on 05-14-2025 Glucose [Mass/Vol] 78 mg/dL Normal 70-100 [facility] Comment on above: ADA recommended refe rence rangeRandom Glucose Reference Range is dependent on time and content of last meal. Glucose of more than 200 mg/dL in a nonstressed, ambulatory subject supports the diagnosis of Diabetes Mellitus. Result Comment: [place] om Glucose Reference Range is dependent on time and content of last meal. Glucose of more than 200 mg/dL in a nonstressed, ambulatory subject supports the diagnosis of Diabetes Mellitus. ADA recommended reference range Performed By: #### C BC, PT, BMP, HS TROP, CK, MG, PTT #### [facility] [address] Glucose [Mass/volume] in Uri ne by Test stripOrdered By: Jae Alcaraz on 05-14-2025 Glucose Test strip (U) [Mass/Vol] Normal mg/dL Normal [facility] Hematocrit [Volume Fraction] of Blood by Automated countOrdered By: Jae Alcaraz on 05-14-2025 Hematocrit (Bld) [Volume fraction] 35.7 % Normal 34.0-46.4 [facility] Comment on above: Performed By: #### C BC, PT, BMP, HS TROP, CK, MG, PTT #### [facility] [address] [place] [id number] [facility] Hemoglobin Test strip Ql (U) Ordered By: Jae Alcaraz on 05-14-2025 Hemoglobin Ql (U) Negative Negative [facility] Hemoglobin [Mass/volume] in BloodOrdered By: Jae Alcaraz on 05-14-2025 Hemoglobin (Bld) [Mass/Vol] 12.3 g/dL Normal 11.8-15.4 [facility] Comment on above: Performed By: #### C BC, PT, BMP, HS TROP, CK, MG, PTT #### [facility] [address] Hyaline casts [#/area] in Ur ine sediment by Automated countOrdered By: Jae Alcaraz on 05-14-2025 Hyaline casts Auto (Urine sed) [#/Area] None [LPF] 0-8 [facility] INR in Platelet poor plasma by Coagulation assayOrdered By: Jae Alcaraz on 05-14-2025 INR Coag (PPP) [Relative time] 1.0 {INR} Normal [facility] Comment on above: INR Therapeutic Rang e A) Pre- and Peroperative OAT started two weeks before surgery. NOT HIP SURGERY: 1.5 - 2.5 HIP SURGERY: 2 - 3B) Primary and secondary prevention of venous THROMBOSIS: 2 - 3C) Active venous thrombosis, pulmonary embolismand prevention of recurrent venous thrombosis: 2 - 3D) Prevention of arterial thromboembolismincluding patients with mechanical heart valves: 3 - 4.5 Result Comment: INR Therapeutic Range A) Pre- and Peroperative OAT started two weeks before surgery. NOT HIP SURGERY: 1.5 - 2.5 HIP SURGERY: 2 - 3 B) Primary and secondary prevention of venous THROMBOSIS: 2 - 3 C) Active venous thrombosis, pulmonary embolism and prevention of recurrent venous thrombosis: 2 - 3 D) Prevention of arterial thromboembolism including patients with mechanical heart valves: 3 - 4.5 Performed By: #### C BC, PT, BMP, HS TROP, CK, MG, PTT #### [facility] [address] [place] [id number] [facility] Ketones [Presence] in Urine by Test stripOrdered By: Jae Alcaraz on 05-14-2025 Ketones Ql (U) Negative Normal Negative [facility] Comment on above: Order Comment: Name Collection Type:: Clean-Voided Midstream Performed By: #### A DDONUAPLUS ####[facility] Leukocyte esterase [Presence ] in Urine by Test stripOrdered By: Jae Alcaraz on 05-14-2025 Leukocyte esterase Test strip Ql (U) Negative Normal Negative [facility] Comment on above: Order Comment: Name Collection Type:: Clean-Voided Midstream Performed By: #### A DDONUAPLUS ####[facility] [place] [address] [place] Leukocytes [#/area] in Urine sediment by Automated countOrdered By: Jae Alcaraz on 05-14-2025 WBC Auto (Urine sed) [#/Area] 1-2 [HPF] 0-4 [facility] Leukocytes [#/volume] correc josé for nucleated erythrocytes in Blood by Automated counOrdered By: Jae Alcaraz on 05-14-2025 WBC corrected for nucl RBC Auto (Bld) [#/Vol] 9.5 10*3/uL 3.8-11.6 [facility] Leukocytes [#/volume] in Blo od by Automated countOrdered By: Jae Alcaraz on 05-14-2025 WBC (Bld) [#/Vol] 9.5 10*3/uL Normal 3.8-11.6 [facility] Comment on above: Performed By: #### C BC, PT, BMP, HS TROP, CK, MG, PTT #### [facility] [address] [place] [address] [place] Lymphocytes [#/volume] in Bl ood by Automated countOrdered By: Jae Alcaraz on 05-14-2025 Lymphocytes (Bld) [#/Vol] 3.2 10*3/uL Normal 1.00-4.8 [facility] Comment on above: Performed By: #### C BC, PT, BMP, HS TROP, CK, MG, PTT #### [facility] [address] [place] [address] [place] Lymphocytes/100 leukocytes i n Blood by Automated countOrdered By: Jae Alcaraz on 05-14-2025 Lymphocytes/100 WBC (Bld) 33.2 % Normal . [facility] Comment on above: Performed By: #### C BC, PT, BMP, HS TROP, CK, MG, PTT #### [facility] [address] MCH [Entitic mass] by Automa josé countOrdered By: Jae Alcaraz on 05-14-2025 MCH (RBC) [Entitic mass] 32.2 pg Normal 24.7-34.3 [facility] Comment on above: Performed By: #### C BC, PT, BMP, HS TROP, CK, MG, PTT #### [facility] [address] [place] [address] MCHC Auto (RBC) [Mass/Vol]Or dered By: Jae Alcaraz on 05-14-2025 MCHC (RBC) [Mass/Vol] 34.6 g/dL 32.0-35.0 [facility] MCV [Entitic volume] by Auto mated countOrdered By: Jae Alcaraz on 05-14-2025 MCV (RBC) [Entitic vol] 93.2 fL Normal 80-100 [facility] Comment on above: Performed By: #### C BC, PT, BMP, HS TROP, CK, MG, PTT #### [address] Magnesium [Mass/volume] in [place] or PlasmaOrdered By: Jae Alcaraz on 05-14-2025 Magnesium [Mass/Vol] 2.2 mg/dL Normal 1.9-2.7 [facility] Comment on above: Result Comment: PERF ORMED BY: [place] [address] PATHOLOGIST [employer] KRYSTIAN HILL M.D. Performed By: #### C BC, PT, BMP, HS TROP, CK, MG, PTT #### [address] Monocyte distribution width [Entitic volume] in Blood by AutomatedOrdered By: Jae Alcaraz on 05-14-2025 Monocyte distribution width Auto (Bld) [Entitic vol] 16.33 % 0.00-20.00 [facility] Monocytes [#/volume] in Bloo d by Automated countOrdered By: Jae Alcaraz on 05-14-2025 Monocytes (Bld) [#/Vol] 0.5 10*3/uL Normal 0.0-0.8 [facility] Comment on above: Performed By: #### C BC, PT, BMP, HS TROP, CK, MG, PTT #### [facility] [address] [place] [address] [place] Monocytes/100 leukocytes in Blood by Automated countOrdered By: Jae Alcaraz on 05-14-2025 Monocytes/100 WBC (Bld) 5.3 % Normal . [facility] Comment on above: Performed By: #### C BC, PT, BMP, HS TROP, CK, MG, PTT #### [facility] [address] [place] [address] [place] Neutrophils [#/volume] in Bl ood by Automated countOrdered By: Jae Alcaraz on 05-14-2025 Neutrophils (Bld) [#/Vol] 5.2 10*3/uL Normal 1.8-7.7 [facility] Comment on above: Performed By: #### C BC, PT, BMP, HS TROP, CK, MG, PTT #### [facility] [address] [place] [address] [place] Neutrophils/100 leukocytes i n Blood by Automated countOrdered By: Jae Alcaraz on 05-14-2025 Neutrophils/100 WBC (Bld) 54.5 % Normal . [facility] Comment on above: Performed By: #### C BC, PT, BMP, HS TROP, CK, MG, PTT #### [facility] [address] [place] [address] [place] Nitrite Test strip Ql (U)Ord ered By: Jae Alcaraz on 05-14-2025 Nitrite Ql (U) Negative Negative [facility] No Panel InformationOrdered By: Jae Alcaraz on 05-14-2025 Pharmacy Creatinine Clearance (Chem 99.94 [facility] Nucleated erythrocytes [Pres ence] in Blood by Automated countOrdered By: Jae Alcaraz on 05-14-2025 Nucleated RBC Auto Ql (Bld) 0.0 /100{WBC} 0-0.5 [facility] Partial Thromboplastin Timeo n 05-14-2025 aPTT Coag (Bld) [Time] 36.6 s High 25.1-36.5 [facility] Comment on above: Result Comment: A he matocrit value greater than 55% may lead to inaccurate results in coagulation testing. Patients having hematocrit values >55% require a special collection tube for coagulation studies. Please contact the laboratory at [phone] for redraw instructions. PERFORMED BY: [place] [address] PATHOLOGIST [employer] KRYSTIAN HILL M.D. Performed By: #### C BC, PT, BMP, HS TROP, CK, MG, PTT #### [address] Platelet mean volume [Entiti c volume] in Blood by Automated countOrdered By: Jae Alcaraz on 05-14-2025 Platelet mean volume (Bld) [Entitic vol] 7.8 fL Normal 6.3-10.7 [facility] Comment on above: Performed By: #### C BC, PT, BMP, HS TROP, CK, MG, PTT #### [address] Platelets [#/volume] in Bloo d by Automated countOrdered By: Jae Alcaraz on 05-14-2025 Platelets (Bld) [#/Vol] 319 10*3/uL Normal 150-450 [facility] Comment on above: Performed By: #### C BC, PT, BMP, HS TROP, CK, MG, PTT #### [address] Potassium [Moles/volume] in Serum or PlasmaOrdered By: Jae Alcaraz on 05-14-2025 Potassium [Moles/Vol] 3.5 mmol/L Normal 3.5-5.1 [facility] Comment on above: Performed By: #### C BC, PT, BMP, HS TROP, CK, MG, PTT #### [address] Protein Test strip (U) [Mass /Vol]Ordered By: Jae Alcaraz on 05-14-2025 Protein (U) [Mass/Vol] Negative Negative [facility] Prothrombin time (PT)Ordered By: Jae Alcaraz on 05-14-2025 PT Coag (PPP) [Time] 11.3 s Normal 9.0-12.9 [facility] Comment on above: A hematocrit value g reater than 55% may lead to inaccurate results in coagulation testing. Patients having hematocrit values >55% require a special collection tube for coagulation studies. Please contact the laboratory at [phone] for redraw instructions. Result Comment: A he matocrit value greater than 55% may lead to inaccurate results in coagulation testing. Patients having hematocrit values >55% require a special collection tube for coagulation studies. Please contact the laboratory at [phone] for redraw instructions. Performed By: #### C BC, PT, BMP, HS TROP, CK, MG, PTT #### [facility] [address] Serum or plasma anion gap de terminationOrdered By: Jae Alcaraz on 05-14-2025 Anion gap [Moles/Vol] 10.1 mmol/L Normal 6.0-15.0 [facility] Comment on above: Performed By: #### C BC, PT, BMP, HS TROP, CK, MG, PTT #### [facility] [address] Sodium [Moles/volume] in Ser um or PlasmaOrdered By: Jae Alcaraz on 05-14-2025 Sodium [Moles/Vol] 139 mmol/L Normal 136-145 [facility] Comment on above: Performed By: #### C BC, PT, BMP, HS TROP, CK, MG, PTT #### [facility] [address] [place] [address] [place] Specific gravity Test strip (U) [Rel density]Ordered By: Jae Alcaraz on 05-14-2025 Specific gravity (U) [Rel density] 1.012 1.001-1.03 0 [facility] Troponin I High Sensitivityo n 05-14-2025 Troponin I High Sensitivity <3 Normal 0-15 [facility] Comment on above: Result Comment: The Troponin units of report have been changed to meet the Chest Pain Accreditation requirement, element EC5.M1l2. Troponin units are changed from pg/ml to ng/L. Also, the decimal is removed and results are in whole numbers. PERFORMED BY: [place] [address] PATHOLOGIST [employer] KRYSTIAN HILL M.D. Performed By: #### C BC, PT, BMP, HS TROP, CK, MG, PTT #### [address] Troponin I.cardiac [Mass/vol ume] in Serum or Plasma by Detection limit <= 0.01 ng/mLOrdered By: Jae Alcaraz on 05-14-2025 Troponin I.cardiac DL <= 0.01 ng/mL [Mass/Vol] < 3 ng/L 0- [facility] Comment on above: The Troponin units o f report have been changed to meet the Chest Pain Accreditation requirement, element EC5.M1l2. Troponin units are changed from pg/ml to ng/L. Also, the decimal is removed and results are in whole numbers. Urea nitrogen [Mass/volume] in Serum or PlasmaOrdered By: Jae Alcaraz on 05-14-2025 Urea nitrogen [Mass/Vol] 12 mg/dL Normal 04-09 [facility] Comment on above: Performed By: #### C BC, PT, BMP, HS TROP, CK, MG, PTT #### [address] Urobilinogen Test strip (U) [Mass/Vol]Ordered By: Jae Alcaraz on 05-14-2025 Urobilinogen (U) [Mass/Vol] Normal mg/dL Normal [facility] XR lumbar spine 2-3V*on 04-17 XR lumbar spine 2-3V* [facility] [place] [address] [place] [address] XRay Report Signed Patient: Deepti Arellano MR#: [id number] 3 : 1980 Acct:[id number] Age/Sex: 44 / F ADM Date: 05/13/25 Loc: ER Room: Type: [facility] ER Attending Dr: Copies to: Jae Alcaraz Jr, MD Ordering Provider: Jae Alcaraz Jr, MD Date of Service: 05/14/25 XR/XR chest 1V portable: pedal edema ([id number]) XR/XR lumbar spine 2-3V*: L foot numb, can't dorsiflex big toe SINGLE VIEW CHEST , lumbar spine 2 views CLINICAL HISTORY: Bilateral leg numbness and tingling. flank pain. COMPARISON: Chest 11/17/2024 FINDINGS: Chest: Heart normal in size. Lungs are clear. No free air. Lumbar spine: Vertebral body and disc space heights appear maintained. Mild endplate and facet joint degenerative changes. Moderate stool burden. XR/XR chest 1V portable IMPRESSION: CHEST DEMONSTRATES NO ACUTE FINDINGS. LUMBAR SPINE DEMONSTRATES MILD DEGENERATIVE CHANGE WITHOUT SIGNIFICANT DISC HEIGHT LOSS. EVIDENCE OF CONSTIPATION. Impression dictated by: Kaleb Castillo Jr., D.O. 05/14/2025 9:20 AM Dictation Location: [place] [address] Transcribed By: [facility] 05/14/25 0920 Dictated By: Kaleb Castillo Jr, DO 05/14/25 0917 Signed By: 05/14/25 0920 Normal [facility] aPTT in Platelet poor plasma by Coagulation assayOrdered By: Jae Alcaraz on 05-14-2025 aPTT Coag (PPP) [Time] 36.6 s High 25.1-36.5 [facility] Comment on above: A hematocrit value g reater than 55% may lead to inaccurate results in coagulation testing. Patients having hematocrit values >55% require a special collection tube for coagulation studies. Please contact the laboratory at [phone] for redraw instructions. pH of Urine by Test stripOrd ered By: Jae Alcaraz on 05-14-2025 pH (U) 7.0 [pH] Normal 5.0-9.0 [facility] Comment on above: Order Comment: Name Collection Type:: Clean-Voided Midstream Performed By: #### A DDONUAPLUS ####[facility] [id number] [place] [address] [place] ECG 12 lead ECGon 05-13-2025 [address] [facility] [place] [address] [place] [address] Electrocardiograph Report Signed Patient: Deepti Arellano MR#: [id number] 3 : 1980 Acct:[id number] Age/Sex: 44 / F ADM Date: 05/13/25 Loc: ER Room: Type: [facility] ER Attending Dr: Ordering Provider: Jae Alcaraz Jr, MD Date of Service: 05/13/25 ECG/ECG 12 lead ECG: Neuro Symptoms/Deficit Copies to: Test Reason : Blood Pressure : */* mmHG Vent. Rate : 72 BPM Atrial Rate : 72 BPM P-R Int : 152 ms QRS Dur : 88 ms QT Int : 400 ms P-R-T Axes : 77 83 69 degrees QTcB Int : 438 ms Normal sinus rhythm Low voltage QRS Borderline ECG When compared with ECG of 17-Nov-2024 12:00, No significant change was found Confirmed by JAE ALCARAZ MD ([id number]) on 05/14/2025 5:42:33 AM Referred By: Electronically Signed By: JAE ALCARAZ MD Transcribed By: MUS Signed By Jae Alcaraz Jr, MD 0542 Normal [facility] ECG 12 lead ECGon 11-17-2024 [address] [facility] [place] [address] [place] [address] Electrocardiograph Report Signed Patient: Deepti Arellano MR#: [id number] : 1980 Acct:[id number] Age/Sex: 44 / F ADM Date: 11/17/24 Loc: ER Room: Type: [facility] ER Attending Dr: Ordering Provider: Yuri Morillo PA-C Date of Service: 11/17/2401/08/1159 ECG/ECG 12 lead ECG: Shortness of Breath/Dyspnea Copies to: Test Reason : Blood Pressure : 161/79 mmHG Vent. Rate : 73 BPM Atrial Rate : 73 BPM P-R Int : 124 ms QRS Dur : 84 ms QT Int : 376 ms P-R-T Axes : 81 82 74 degrees QTcB Int : 414 ms Normal sinus rhythm Confirmed by Vlad SMITH DO ([id number]) on 11/17/2024 3:57:14 PM Referred By: Electronically Signed By: Vlad SMITH DO Transcribed By: MUS Signed By Vlad Smith DO 0 11/17/24 1557 Normal [facility] X-ray reportOrdered By: Abhinav Castillo on 11-17-2024 Study report [place] [id number] XRay Report Signed Patient: Deepti Arellano MR#: [id number] : 1980 Acct:[id number] Age/Sex: 44 / F ADM Date: 5 Loc: ER Room: Type: [facility] ER Attending Dr: Copies to: Yuri Morillo PA-C~ Ordering Provider: Yuri Morillo PA-C Date of Service: 11/17/24 XR/XR chest 2V*: possible L lower pneumonia Chest 2 views CLINICAL HISTORY: Congestion shortness of breath dizziness. COMPARISON: None FINDINGS: Heart normal size. Lungs are clear. No free air. XR/XR chest 2V* IMPRESSION: NO ACUTE CARDIOPULMONARY ABNORMALITY. Impression dictated by: Kaleb Castillo Jr., DJessieOJessie11/17/2024 12:41 PM Dictation Location: [place] [address] Transcribed By: [facility] 11/17/24 1241 Dictated By: aKleb Castillo Jr, DO 11/17/24 1240 Signed By: 11/17/24 1241 [facility] XR chest 2V*on 11-17-2024 XR chest 2V* [address] [address] XRay Report Signed Patient: Deepti Arellano MR#: [id number] : 1980 Acct:[id number] Age/Sex: 44 / F ADM Date: 11/17/24 Loc: ER Room: Type: [facility] ER Attending Dr: Copies to: Yuri Morillo PA-C Ordering Provider: Yuri Morillo PA-C Date of Service: 11/17/24 XR/XR chest 2V*: possible L lower pneumonia Chest 2 views CLINICAL HISTORY: Congestion shortness of breath dizziness. COMPARISON: None FINDINGS: Heart normal size. Lungs are clear. No free air. XR/XR chest 2V* IMPRESSION: NO ACUTE CARDIOPULMONARY ABNORMALITY. Impression dictated by: Kaleb Castillo Jr., MattOJessie11/17/2024 12:41 PM Dictation Location: [place] [address] Transcribed By: [facility] 11/17/24 1241 Dictated By: Kaleb Castillo Jr, DO 11/17/24 1240 Signed By: 11/17/24 1241 Normal [facility] MAMM SCREENING BILATERAL W C intelligence manager 09-10-2024 MAMM SCREENING BILATERAL W CAD MAMM SCREENING BILATERAL W CAD DEEPTI LANDON [facility] 1980 [id number] EXAM: MAMM SCREENING BILATERAL W CAD, 09/10/2024 8:22 AM CLINICAL INDICATIONS: Screening, Encounter for screening mammogram for malignant neoplasm of breast COMPARISON: Mammograms dated 01/16/2016, 07/16/2012 TECHNIQUE: Bilateral digital tomosynthesis MLO and CC views of the breasts were obtained, with creation of synthetic 2D views. Computer aided detection was utilized. FINDINGS: The breasts are extremely dense, which lowers the sensitivity of mammography. There are no suspicious masses, calcifications, or areas of architectural distortion. IMPRESSION: No mammographic evidence of malignancy. BI-RADS: BI-RADS 1 - Negative RECOMMENDATION: Routine screening mammogram in 1 year. Due to the density and/or complexity of breast tissue on mammography, Molecular Breast Imaging is recommended as a supplement to annual screening mammography. MBI can be used to help detect mammographically occult cancers in dense breasts. RISK ASSESSMENT: TC Lifetime risk: 17.8%. The patient's reported personal and family medical history was used calculate their Tyrer-Cuzick lifetime risk of malignancy. Scores less than 20% are not considered high risk per ACR guidelines and patient should continue with the above recommendation. Finalized by Tessy Brewer MD on 09/10/2024 1:15 PM 1 d MAMM 1 YR Normal [facility] COVID Quick Testingon 09-21 Result Negative MOWGLI Other PAP ACOG PANEL 2: 30 to 65on 09-30-2019 Age Gdln ACOG Testing 30-65 Normal [facility] Comment on above: Performed By: #### P REG #### [facility] [address] [place] [address] Errol Nadira COMMENT Comment Normal [facility] Comment on above: Result Comment: Z01. 419 Z11.51 Performed at: WB Performed By: #### P REG #### [facility] [address] [place] [address] Errol Waddell DIAGNOSIS: Comment Normal [facility] Comment on above: Result Comment: NEGA TIVE FOR INTRAEPITHELIAL LESION OR MALIGNANCY. Performed at: WB Performed By: #### P REG #### [facility] [address] [place] [address] Errol Nadira HPV Aptima Negative Normal Negative [facility] Comment on above: Result Comment: This test was developed and its performance characteristics determined by [employer]. It has not been cleared or approved by the Food and Drug Administration. This nucleic acid amplification test detects fourteen high-risk HPV types (16,18,31,33,35,39,45,51,52,56,58,59,66,68) without differentiation. Performed at: =G Performed By: #### P REG #### [facility] [address] [place] [address] Errol Nadira Methodology: Comment Normal [facility] Comment on above: Result Comment: This liquid based SurePath(R) pap test was screened with the assistance of an image guided system. Performed at: WB Performed By: #### P REG #### [facility] [address] [place] [address] Errol Nadira Note: Comment Normal [facility] Comment on above: Result Comment: The Pap smear is a screening test designed to aid in the detection of premalignant and malignant conditions of the uterine cervix. It is not a diagnostic procedure and should not be used as the sole means of detecting cervical cancer. Both false-positive and false-negative reports do occur. . Performed at: WB Performed By: #### P REG #### [facility] [address] [place] [address] Errol Nadira Performed by: Comment Normal [facility] Comment on above: Result Comment: Connie Awan, Animal Nursery Worker (ASCP) Performed at: WB Performed By: #### P REG #### [facility] [address] [address] Errol Waddell Specimen adequacy: Comment Normal [facility] Comment on above: Result Comment: Sati sfactory for evaluation. No endocervical cells are present. This is consistent with a history of hysterectomy. Performed at: WB Performed By: #### P REG #### [facility] [address] [place] [address] Errol Waddell . . Normal [facility] Comment on above: Result Comment: Perf ormed at: WB Performed By: #### P REG #### [facility] [address] [place] [address] Errol Waddell VAGINITIS/VAGINOSIS DNA PROB Micah 09-27-2019 Edna species Positive Abnormal Negative [facility] Comment on above: Performed By: #### P REG #### [facility] [address] [place] [address] Errol Nadira Gardnerella vaginalis Negative Normal Negative [facility] Comment on above: Performed By: #### P REG #### [facility] [address] [place] [address] Errol Waddell Trichomonas vaginalis Negative Normal Negative [facility] Comment on above: Performed By: #### P REG #### [facility] [address] [place] [address] Errol Waddell US PELVIS AND TRANSVAGon US PELVIS AND TRANSVAG Patient: KRYSTLE ARELLANO Exam Date: 06/04/2019 : 1980 Gender:F Ordering : DR JESUS ESTRADA . Admission #: [id number] Family : Order #: [id number] CLICK HERE TO VIEW EXAM RADIOLOGY REPORT [...] Hysterectomy, otherwise normal exam Dictated by: Sanchez Harrsion M.D. on 06/04/2019 at 12:20 Approved by: Sanchez Harrison M.D. on 06/04/2019 at 12:23 Normal [facility] UA RANDOM W/MICROSCOPICon Bacteria LM.HPF (Urine sed) [#/Area] NONE SEEN Normal NONE SEEN [facility] Comment on above: Performed By: #### P REG #### [facility] [address] [place] [address] Errol Nadira Bilirubin [Mass/Vol] Negative Normal NEGATIVE [facility] Comment on above: Performed By: #### P REG #### [facility] [address] [place] [address] Errol Nadira BLOOD TRACE-INTACT Normal NEGATIVE [facility] Comment on above: Performed By: #### P REG #### [facility] [address] [place] [address] Errol Nadira CAST NONE SEEN Normal NONE SEEN [facility] Comment on above: Performed By: #### P REG #### [facility] [address] [place] [address] Errol Nadira Clarity (U) CLEAR Normal [facility] Comment on above: Performed By: #### P REG #### [facility] [address] [place] [address] Errol Nadira Color (U) YELLOW Normal YELLOW [facility] Comment on above: Performed By: #### P REG #### [facility] [address] [place] [address] Errol Nadira Crystals LM Nom (Urine sed) NONE SEEN Normal NONE SEEN [facility] Comment on above: Performed By: #### P REG #### [facility] [address] [place] [address] Errol Nadira Epithelial cells LM.HPF (Urine sed) [#/Area] FEW Normal [facility] Comment on above: Performed By: #### P REG #### [facility] [address] [place], [place] [address] Errol Nadira Glucose [Mass/Vol] Negative Normal NEGATIVE [facility] Comment on above: Performed By: #### P REG #### [facility] [address] [place] [address] Errol Nadira Ketones Ql (U) Negative Normal NEGATIVE [facility] Comment on above: Performed By: #### P REG #### [facility] [address] [place], [place] [address] Errol Nadira MUCOUS MODERATE Normal NONE SEEN [facility] Comment on above: Performed By: #### P REG #### [facility] [address] [place] [address] Errol Nadira Nitrite Ql (U) Negative Normal NEGATIVE [facility] Comment on above: Performed By: #### P REG #### [facility] [address] [place] [address] Errol Nadira pH (Bld) 6.5 Normal 5-9 [facility] Comment on above: Performed By: #### P REG #### [facility] [address] [place] [address] Errol Nadira Protein [Mass/Vol] Negative Normal [facility] Comment on above: Performed By: #### P REG #### [facility] [address] [place], [place] [address] Errol Nadira RBC (Bld) [#/Vol] 0-2 Normal 0-2 [facility] Comment on above: Performed By: #### P REG #### [facility] [address] [place] [address] Errol Nadira SPEC GRAVITY 1.020 Normal 1.005-<=1. 025 [facility] Comment on above: Performed By: #### P REG #### [facility] [address] [place], [place] [address] Errol Nadira Urobilinogen Qn (U) 1.0 EU/dl Normal [facility] Comment on above: Performed By: #### P REG #### [facility] [address] [place], [place] [address] Errol Nadira WBC (Bld) [#/Vol] Negative Normal NEGATIVE [facility] Comment on above: Performed By: #### P REG #### [facility] [address] [place] [address] Errol Nadira WBC (Bld) [#/Vol] 0-2 Normal NONE SEEN [facility] Comment on above: Performed By: #### P REG #### [facility] [address] [place] [address] Errol Waddell Yeast LM Ql (Urine sed) PRESENT Normal [facility] Comment on above: Performed By: #### P REG #### [facility] [address] [place] [address] Errol Waddell PRBC LEUKOREDUCEDon 11-12-19 19 ABO and Rh group Nom (Bld) Cross Match Result Compatible Unit Blood Type O Pos Unit Number [id number] Status Information Transfused Product ID Red Blood Cells Product Code [id number] Cross Match Result Compatible Unit Blood Type O Pos Unit Number [id number] Status Information Transfused Product ID Red Blood Cells Product Code [id number] Normal [facility] Comment on above: Performed By: #### P RBC #### [facility] [address] [place], [place] [address] Errol Waddell ABO and Rh group Nom (Bld) Cross Match Result Compatible Unit Blood Type O Pos Unit Number [id number] Status Information Transfused Product ID Red Blood Cells Product Code [id number] Cross Match Result Compatible Unit Blood Type O Pos Unit Number [id number] Status Information Transfused Product ID Red Blood Cells Product Code [id number] Normal [facility] Comment on above: Performed By: #### P RBC #### [facility] [address] [place], [place] [address] Errol Waddell CBC AUTO DIFFon 10-29-2018 Basophils (Bld) [#/Vol] 0.0 103/ul Normal 0.0-0.1 [facility] Comment on above: Performed By: #### C BC #### [facility] [address] [place] [address] Errol Waddell Basophils/100 WBC (Bld) 0.2 % Normal 0.2-2.0 [facility] Comment on above: Performed By: #### C BC #### [facility] [address] [id number] Errol Nadira Eosinophils (Bld) [#/Vol] 0.2 103/ul Normal 0.0-0.7 [facility] Comment on above: Performed By: #### C BC #### [facility] [address] [place], [place] [address] Errol Nadira Eosinophils/100 WBC (Bld) 1.8 % Normal 0.9-7.0 [facility] Comment on above: Performed By: #### C BC #### [facility] [address] [place], [place] [address] Errol Nadira Erythrocyte distribution width (RBC) [Ratio] 13.6 % Normal 11.0-15.0 [facility] Comment on above: Performed By: #### C BC #### [facility] [address] [place], [place] [address] Errol Nadira Hematocrit (Bld) [Volume fraction] 26.2 % Critically low 36.0-48.0 [facility] Comment on above: Performed By: #### C BC #### [facility] [address] [place], [place] [address] Errol Nadira Hemoglobin (Bld) [Mass/Vol] 8.9 g/dL Critically low 12.0-16.0 [facility] Comment on above: Performed By: #### C BC #### [facility] [address] [place], [place] [address] Errol Nadira IG # 0.04 10e3/ul Critically high 0.00-0.03 [facility] Comment on above: Performed By: #### C BC #### [facility] [address] [place], [place] [address] Errol Nadira IG % 0.4 % Normal 0.0-0.5 [facility] Comment on above: Performed By: #### C BC #### [facility] [address] [place], [place] [address] Errol Nadira Lymphocytes (Bld) [#/Vol] 2.2 103/ul Normal 1.2-3.8 [facility] Comment on above: Performed By: #### C BC #### [facility] [address] [place], [place] [address] Errol Nadira Lymphocytes/100 WBC (Bld) 23.5 % Normal 20.5-60.0 [facility] Comment on above: Performed By: #### C BC #### [facility] [address] [place], [place] [address] Errol Nadira MANUAL DIFF REQ NO Normal [facility] Comment on above: Performed By: #### C BC #### [facility] [address] [place], [place] [address] Errol Nadira MCH (RBC) [Entitic mass] 30.6 pg Normal 26.7-34.0 [facility] Comment on above: Performed By: #### C BC #### [facility] [address] [place] [address] Errol Nadira MCHC (RBC) [Mass/Vol] 34.0 g/dL Normal 29.9-35.2 [facility] Comment on above: Performed By: #### C BC #### [facility] [address] [place] [address] Errol Nadira MCV (RBC) [Entitic vol] 90.0 fL Normal 81.0-99.0 [facility] Comment on above: Performed By: #### C BC #### [facility] [address] [place] [address] Errol Nadira Monocytes (Bld) [#/Vol] 0.5 103/ul Normal 0.3-0.8 [facility] Comment on above: Performed By: #### C BC #### [facility] [address] [place] [address] Errol Nadira Monocytes/100 WBC (Bld) 5.6 % Normal 1.7-12.0 [facility] Comment on above: Performed By: #### C BC #### [facility] [address] [place], [place] [address] Errol Nadira Neutrophils (Bld) [#/Vol] 6.4 103/ul Normal 1.4-6.5 [facility] Comment on above: Performed By: #### C BC #### [facility] [address] [place], [place] [address] Errol Waddell Neutrophils/100 WBC (Bld) 68.5 % Normal 43.0-75.0 [facility] Comment on above: Performed By: #### C BC #### [facility] [address] [place], [place] [address] Errol Waddell Platelet mean volume (Bld) [Entitic vol] 10.2 fL Normal 9.5-13.5 [facility] Comment on above: Performed By: #### C BC #### [facility] [address] [place] [address] Errol Waddell Platelets (Bld) [#/Vol] 145 103/ul Critically low 150-450 [facility] Comment on above: Performed By: #### C BC #### [facility] [address] [place] [address] Errol Waddell RBC (Bld) [#/Vol] 2.91 106/ul Critically low 4.20-5.40 [facility] Comment on above: Performed By: #### C BC #### [facility] [address] [place], [place] [address] Errol Waddell WBC (Bld) [#/Vol] 9.3 103/ul Normal 4.0-11.0 [facility] Comment on above: Performed By: #### C BC #### [facility] [address] [place], [place] [address] Errol Waddell HEMOGLOBINon 10-29-2018 Hemoglobin (Bld) [Mass/Vol] 9.6 g/dL Critically low 12.0-16.0 [facility] Comment on above: Performed By: #### H GB #### [facility] [address] [place], [place] [address] Erroladelaida Waddell BUNon 10-28-2018 Urea nitrogen [Mass/Vol] 12.0 mg/dL Normal 7.0-17.0 [facility] Comment on above: Performed By: #### C DAVID, BUN #### [facility] [address] [place] [address] Errol Nadira CBC AUTO DIFFon 10-28-2018 Basophils (Bld) [#/Vol] 0.0 103/ul Normal 0.0-0.1 [facility] Comment on above: Performed By: #### C BC #### [facility] [address] [place], [place] [address] Errol Nadira Basophils/100 WBC (Bld) 0.2 % Normal 0.2-2.0 [facility] Comment on above: Performed By: #### C BC #### [facility] [address] [place] [address] Errol Nadira Eosinophils (Bld) [#/Vol] 0.1 103/ul Normal 0.0-0.7 [facility] Comment on above: Performed By: #### C BC #### [facility] [address] [place] [address] Errol Nadira Eosinophils/100 WBC (Bld) 0.7 % Critically low 0.9-7.0 [facility] Comment on above: Performed By: #### C BC #### [facility] [address] [place] [address] Errol Nadira Erythrocyte distribution width (RBC) [Ratio] 13.2 % Normal 11.0-15.0 [facility] Comment on above: Performed By: #### C BC #### [facility] [address] [place] [address] Errol Nadira Hematocrit (Bld) [Volume fraction] 23.5 % Critically low 36.0-48.0 [facility] Comment on above: Result Comment: test repeated, critical value verified Performed By: #### C BC #### [facility] [address] [place] [address] Errol Nadira Hemoglobin (Bld) [Mass/Vol] 7.9 g/dL Critically low 12.0-16.0 [facility] Comment on above: Performed By: #### C BC #### [facility] [address] [place] [address] Errol Nadira IG # 0.09 10e3/ul Critically high 0.00-0.03 [facility] Comment on above: Performed By: #### C BC #### [facility] [address] [place], [place] [address] Errol Nadira IG % 0.6 % Critically high 0.0-0.5 [facility] Comment on above: Performed By: #### C BC #### [facility] [address] [place] [address] Errol Nadira Lymphocytes (Bld) [#/Vol] 2.5 103/ul Normal 1.2-3.8 [facility] Comment on above: Performed By: #### C BC #### [facility] [address] [place], [place] [address] Errol Nadira Lymphocytes/100 WBC (Bld) 17.0 % Critically low 20.5-60.0 [facility] Comment on above: Performed By: #### C BC #### [facility] [address] [place], [place] [address] Errol Nadira MANUAL DIFF REQ NO Normal [facility] Comment on above: Performed By: #### C BC #### [facility] [address] [place], [place] [address] Errol Nadira MCH (RBC) [Entitic mass] 30.6 pg Normal 26.7-34.0 [facility] Comment on above: Performed By: #### C BC #### [facility] [address] [place], [place] [address] Errol Nadira MCHC (RBC) [Mass/Vol] 33.6 g/dL Normal 29.9-35.2 [facility] Comment on above: Performed By: #### C BC #### [facility] [address] [place], [place] [address] Errol Nadira MCV (RBC) [Entitic vol] 91.1 fL Normal 81.0-99.0 [facility] Comment on above: Performed By: #### C BC #### [facility] [address] [place], [place] [address] Errol Nadira Monocytes (Bld) [#/Vol] 0.8 103/ul Normal 0.3-0.8 [facility] Comment on above: Performed By: #### C BC #### [facility] [address] [place], [place] [address] Errol Nadira Monocytes/100 WBC (Bld) 5.3 % Normal 1.7-12.0 [facility] Comment on above: Performed By: #### C BC #### [facility] [address] [place], [place] [address] Errol Nadira Neutrophils (Bld) [#/Vol] 11.2 103/ul Critically high 1.4-6.5 [facility] Comment on above: Performed By: #### C BC #### [facility] [address] [place] [address] Errol Nadira Neutrophils/100 WBC (Bld) 76.2 % Critically high 43.0-75.0 [facility] Comment on above: Performed By: #### C BC #### [facility] [address] [place] [address] Errol Nadira Platelet mean volume (Bld) [Entitic vol] 10.0 fL Normal 9.5-13.5 [facility] Comment on above: Performed By: #### C BC #### [facility] [address] [place] [address] Errol Nadira Platelets (Bld) [#/Vol] 186 103/ul Normal 150-450 [facility] Comment on above: Performed By: #### C BC #### [facility] [address] [place] [address] Errol Nadira RBC (Bld) [#/Vol] 2.58 106/ul Critically low 4.20-5.40 [facility] Comment on above: Performed By: #### C BC #### [facility] [address] [place] [address] Errol Nadira WBC (Bld) [#/Vol] 14.7 103/ul Critically high 4.0-11.0 [facility] Comment on above: Performed By: #### C BC #### [facility] [address] [place] [address] Errol Nadira Basophils (Bld) [#/Vol] 0.0 103/ul Normal 0.0-0.1 [facility] Comment on above: Performed By: #### C BC #### [facility] [address] [place], [place] [address] Errol Nadira Basophils/100 WBC (Bld) 0.1 % Critically low 0.2-2.0 [facility] Comment on above: Performed By: #### C BC #### [facility] [address] [place] [address] Errol Nadira Eosinophils (Bld) [#/Vol] 0.0 103/ul Normal 0.0-0.7 [facility] Comment on above: Performed By: #### C BC #### [facility] [address] [place] [address] Errol Nadira Eosinophils/100 WBC (Bld) 0.0 % Critically low 0.9-7.0 [facility] Comment on above: Performed By: #### C BC #### [facility] [address] [place] [address] Errol Waddell Erythrocyte distribution width (RBC) [Ratio] 12.4 % Normal 11.0-15.0 [facility] Comment on above: Performed By: #### C BC #### [facility] [address] [place] [address] Errol Waddell Hematocrit (Bld) [Volume fraction] 20.0 % Critically low 36.0-48.0 [facility] Comment on above: Result Comment: Test Repeated. Critical Value Verified Performed By: #### C BC #### [facility] [address] [place] [address] Errol Waddell Hemoglobin (Bld) [Mass/Vol] 6.7 g/dL Critically low 12.0-16.0 [facility] Comment on above: Result Comment: Test Repeated. Critical Value Verified Performed By: #### C BC #### [facility] [address] [place] [address] Erroladelaida Waddell IG # 0.11 10e3/ul Critically high 0.00-0.03 [facility] Comment on above: Performed By: #### C BC #### [facility] [address] [place] [address] Errol Nadira IG % 0.5 % Normal 0.0-0.5 [facility] Comment on above: Performed By: #### C BC #### [facility] [address] [place], [place] [address] Errol Nadira Lymphocytes (Bld) [#/Vol] 1.5 103/ul Normal 1.2-3.8 [facility] Comment on above: Performed By: #### C BC #### [facility] [address] [place], [place] [address] Errol Nadira Lymphocytes/100 WBC (Bld) 6.8 % Critically low 20.5-60.0 [facility] Comment on above: Performed By: #### C BC #### [facility] [address] [place] [address] Errol Waddell MANUAL DIFF REQ NO Normal [facility] Comment on above: Performed By: #### C BC #### [facility] [address] [place] [address] Erroladelaida Dioren MCH (RBC) [Entitic mass] 31.6 pg Normal 26.7-34.0 [facility] Comment on above: Performed By: #### C BC #### [facility] [address] [place], [place] [id number] Erroladelaida Waddell MCHC (RBC) [Mass/Vol] 33.5 g/dL Normal 29.9-35.2 [facility] Comment on above: Performed By: #### C BC #### [facility] [address] [place] [address] Errol Nadira MCV (RBC) [Entitic vol] 94.3 fL Normal 81.0-99.0 [facility] Comment on above: Performed By: #### C BC #### [facility] [address] [place], [place] [address] Errol Nadira Monocytes (Bld) [#/Vol] 1.2 103/ul Critically high 0.3-0.8 [facility] Comment on above: Performed By: #### C BC #### [facility] [address] [place], [place] [address] Errol Nadira Monocytes/100 WBC (Bld) 5.6 % Normal 1.7-12.0 [facility] Comment on above: Performed By: #### C BC #### [facility] [address] [place], [place] [address] Errol Nadira Neutrophils (Bld) [#/Vol] 18.5 103/ul Critically high 1.4-6.5 [facility] Comment on above: Performed By: #### C BC #### [facility] [address] [place], [place] [address] Errol Nadira Neutrophils/100 WBC (Bld) 87.0 % Critically high 43.0-75.0 [facility] Comment on above: Performed By: #### C BC #### [facility] [address] [place], [place] [address] Erroladelaida Waddell Platelet mean volume (Bld) [Entitic vol] 10.3 fL Normal 9.5-13.5 [facility] Comment on above: Performed By: #### C BC #### [facility] [address] [place] [address] Errol Waddell Platelets (Bld) [#/Vol] 288 103/ul Normal 150-450 [facility] Comment on above: Performed By: #### C BC #### [facility] [address] [place], [place] [address] Errol Dioren RBC (Bld) [#/Vol] 2.12 106/ul Critically low 4.20-5.40 [facility] Comment on above: Performed By: #### C BC #### [facility] [address] [place] [address] Erroladelaida Waddell WBC (Bld) [#/Vol] 21.2 103/ul Critically high 4.0-11.0 [facility] Comment on above: Result Comment: Post Surgery Performed By: #### C BC #### [facility] [address] [place], [place] [address] Errol Waddell CREATININEon 10-28-2018 Creatinine [Mass/Vol] mg/dL Normal >=60 [facility] Comment on above: Performed By: #### C DAVID, BUN #### [facility] [address] [place], [place] [address] Errol Waddell Creatinine [Mass/Vol] 1.01 mg/dL Normal 0.52-1.04 [facility] Comment on above: Performed By: #### C DAVID, BUN #### [facility] [address] [place], [place] [address] Erroladelaida Waddell PREG HCG QUALon 10-27-2018 , QUAL Negative Normal NEGATIVE [facility] Comment on above: Performed By: #### P REG #### [facility] [address] [place], [place] [address] Errol Nadira TYPE AND SCREENon 10-25-2018 TYPE AND SCREEN Negative Normal [facility] Comment on above: Performed By: #### T NS #### [facility] [address] [place], [place] [address] Errol Waddell Vital Signs Date Time Vital Sign Value Performing Clinician Facility 05-20-2025 16:42-0400 Diastolic blood pressure 70 mm[Hg] [employer] DO Work Phone: [facility] 05-20-2025 16:42-0400 Systolic blood pressure 110 mm[Hg] Wilfred [employer] DO Work Phone: [facility] 05-20-2025 16:38-0400 Body height 170.2 cm Wilfred [employer] DO Work Phone: [facility] 05-20-2025 16:38-0400 Body mass index (BMI) [Ratio] 18.95 kg/m2 Wilfred Furlong DO Work Phone: [facility] 05-20-2025 16:38-0400 Body temperature 98.01 [degF] Wilfred [employer] DO Work Phone: [facility] 05-20-2025 16:38-0400 Body weight 54.88 kg Wilfred [employer] DO Work Phone: [facility] 05-20-2025 16:38-0400 Heart rate 84 /min Wilfred Furlong DO Work Phone: [facility] 05-20-2025 16:38-0400 Respiratory rate 18 /min Wilfred Furlong DO Work Phone: [facility] 05-20-2025 16:38-0400 SaO2% (BldA) [Mass fraction] 96 % Wilfred Furlong DO Work Phone: [facility] 05-14-2025 05:44-0400 Diastolic blood pressure 71 mm[Hg] Wilfred Furlong DO Work Phone: [facility] 05-14-2025 05:44-0400 Heart rate 66 /min Wilfred Furlong DO Work Phone: [facility] 05-14-2025 05:44-0400 Respiratory rate 18 /min Wilfred Furlong DO Work Phone: [facility] 05-14-2025 05:44-0400 SaO2% (BldA) [Mass fraction] 99 % Wilfred Furlong DO Work Phone: [facility] 05-14-2025 05:44-0400 Systolic blood pressure 130 mm[Hg] Wilfred Furlong DO Work Phone: [facility] 05-13-2025 22:47-0400 Body height 170.18 cm Wilfred Furlong DO Work Phone: [facility] 05-13-2025 22:47-0400 Body temperature 98 [degF] Wilfred Furlong DO Work Phone: [facility] 05-13-2025 22:47-0400 Body weight 58.2 kg Wilfred Furlong DO Work Phone: [facility] 04-27-2025 12:56-0400 Body mass index (BMI) [Ratio] 18.64 kg/m2 Michele Medrano MD Work Phone: [facility] 04-27-2025 12:56-0400 Body weight 53.98 kg Michele Medrano MD Work Phone: [facility] 04-27-2025 12:56-0400 Diastolic blood pressure 74 mm[Hg] Michele Medrano MD Work Phone: [facility] 04-27-2025 12:56-0400 Systolic blood pressure 124 mm[Hg] Michele Medrano MD Work Phone: [facility] 12-30-2024 08:28-0400 Body height 170.2 cm Wilfred Furlong DO Work Phone: [facility] 12-30-2024 08:28-0400 Body mass index (BMI) [Ratio] 21.43 kg/m2 Wilfred Furlong DO Work Phone: [facility] 12-30-2024 08:28-0400 Body temperature 97.7 [degF] Wilfred Furlong DO Work Phone: [facility] 12-30-2024 08:28-0400 Body weight 62.05 kg Wilfred Furlong DO Work Phone: [facility] 12-30-2024 08:28-0400 Diastolic blood pressure 62 mm[Hg] Wilfred Furlong DO Work Phone: [facility] 12-30-2024 08:28-0400 Heart rate 77 /min Wilfred Furlong DO Work Phone: [facility] 12-30-2024 08:28-0400 Respiratory rate 18 /min Wilfred Furlong DO Work Phone: [facility] 12-30-2024 08:28-0400 SaO2% (BldA) [Mass fraction] 99 % Wilfred Furlong DO Work Phone: [facility] 12-30-2024 08:28-0400 Systolic blood pressure 92 mm[Hg] Wilfred Furlong DO Work Phone: [facility] 11-17-2024 13:32-0500 Heart rate 77 /min Wilfred Furlong DO Work Phone: [facility] 11-17-2024 13:32-0500 Respiratory rate 21 /min Wilfred Furlong DO Work Phone: [facility] 11-17-2024 13:32-0500 SaO2% (BldA) [Mass fraction] 99 % Wilfred Furlong DO Work Phone: [facility] 11-17-2024 11:58-0500 Body height 170.18 cm Wilfred Furlong DO Work Phone: [facility] 11-17-2024 11:58-0500 Body temperature 97.9 [degF] Wilfred Furlong DO Work Phone: [facility] 11-17-2024 11:58-0500 Body weight 66 kg Wilfred Furlong DO Work Phone: [facility] 11-17-2024 11:58-0500 Diastolic blood pressure 79 mm[Hg] Wilfred Furlong DO Work Phone: [facility] 11-17-2024 11:58-0500 Systolic blood pressure 161 mm[Hg] Wilfred Furlong DO Work Phone: [facility] 11-15-2024 12:06-0500 Body height 170.18 cm [facility] 11-15-2024 12:06-0500 Body mass index (BMI) [Ratio] 23 kg/m2 [facility] 11-15-2024 12:06-0500 Body temperature 99 [degF] [facility] 11-15-2024 12:06-0500 Body weight 66.67 kg [facility] 11-15-2024 12:06-0500 Diastolic blood pressure 77 mm[Hg] [facility] 11-15-2024 12:06-0500 Heart rate 100 /min [facility] 11-15-2024 12:06-0500 Respiratory rate 18 /min [facility] 11-15-2024 12:06-0500 SaO2% (BldA) [Mass fraction] 98 % [facility] 11-15-2024 12:06-0500 Systolic blood pressure 108 mm[Hg] [facility] 09-21-2021 13:30-0500 Body height 170.18 cm Giacomo Juarez Other [facility] Other 09-21-2021 13:30-0500 Body mass index (BMI) [Ratio] 23.49 kg/m2 Giacomo Juarez Other [facility] Other 09-21-2021 13:30-0500 Body temperature 96.9 [degF] Giacomo Juarez Other [facility] Other 09-21-2021 13:30-0500 Body weight 68.04 kg Giacomo Juarez Other [facility] Other 09-21-2021 13:30-0500 Respiratory rate 18 /min Giacomo Juarez Other [facility] Other 09-21-2021 13:30-0500 SaO2% (BldA) [Mass fraction] 99 % Giacomo Juarez Other [facility] Other Encounters Encounter Date Encounter Type Care Provider Facility Start: 06-01-2025 ambulatory RODRÍGUEZ Kaminski Jayshree ilable Start: 06-01-2025 End: 06-01-2025 Follow-up encounter Rodríguez MCCALL Work Phone: [facility] Comment on above: MR lumbar spine wo c ontrast Start: 05-26-2025 End: 05-26-2025 Bamboo flowsheet Rodríguez MCCALL Work Phone: [facility] Start: 05-26-2025 End: 05-26-2025 Bamboo flowsheet Rodríguez MCCALL Work Phone: [facility] Start: 05-26-2025 End: 05-26-2025 Office outpatient visit 15 minutes Rodríguez MCCALL Work Phone: [facility] Comment on above: Foot drop, left foot (Primary Dx); Lumbar radiculopathy Start: 05-26-2025 End: 05-26-2025 ambulatory RODRÍGUEZ J JEREMY Not Available Start: 05-20-2025 End: 05-20-2025 Office outpatient visit 25 minutes Wilfred Fragoso DO Work Phone: [facility] Comment on above: Paresthesia of skin (Primary Dx); Well adult exam; Primary hypertension Start: 05-20-2025 End: 05-20-2025 Patient encounter status Wilfred Fragoso DO Work Phone: [facility] Start: 05-20-2025 ambulatory [facility] Start: 05-20-2025 Encounter for genera l adult medical examination without abnormal findings [facility] Start: 05-15-2025 End: 05-15-2025 Orders Only Wilfred Fragoso DO Work Phone: [facility] Start: 05-14-2025 End: 05-14-2025 Orders Only Wilfred Fragoso DO Work Phone: [facility] Start: 05-13-2025 End: 05-14-2025 Emergency department patient visit Wilfred Fragoso DO Work Phone: -Emergency Room Work Phone: Start: 04-27-2025 End: 04-27-2025 Bamboo flowsheet [facility] Start: 04-27-2025 End: 04-27-2025 Bamboo flowsheet Michele Medrano MD Work Phone: [facility] Start: 04-27-2025 End: 04-27-2025 Initial preventive medicine new patient 40-64yrs Michele Medrano MD Work Phone: [facility] Comment on above: Well woman exam with routine gynecological exam (Primary Dx); Cervical cancer screening; Screening for HPV (human papillomavirus); Other screening mammogram; Dyspareunia in female; Pelvic pain in female; Cystocele with rectocele; Urinary retention with incomplete bladder emptying; Menopausal symptoms Start: 04-27-2025 End: 04-27-2025 Patient encounter procedure Michele Medrano MD Work Phone: [facility] Work Phone: Start: 04-27-2025 End: 04-27-2025 ambulatory MICHELE MEDRANO Not Available Start: 04-13-2025 End: 04-13-2025 Telephone encounter Candido Painter CNA [facility] Start: 04-07-2025 End: 04-07-2025 Orders Only Wilfred G Furlong DO Work Phone: [facility] - [facility] Start: 03-26-2025 End: 03-26-2025 Orders Only Wilfred G Furlong DO Work Phone: [facility] Start: 03-23-2025 End: 03-24-2025 Refill Wilfred G Furlong DO Work Phone: [facility] Comment on above: Anxiety Start: 12-30-2024 End: 12-30-2024 Office outpatient visit 25 minutes Wilfred G Furlong DO Work Phone: [facility] Comment on above: Moderate persistent asthma without complication (Primary Dx); Anxiety; Recurrent major depressive disorder, in full remission Start: 12-30-2024 End: 12-30-2024 ambulatory WILFRED G KRYSLTENG [facility] Start: 11-20-2024 End: 11-20-2024 Refill Wilfred G Furlong DO Work Phone: [facility] Comment on above: Moderate persistent asthma without complication Mild intermittent as thma without complication Start: 11-17-2024 End: 11-17-2024 Orders Only Wilfred Fragoso DO Work Phone: [facility] Comment on above: Influenza A (Primary Dx) Start: 11-17-2024 End: 11-17-2024 Emergency department patient visit Wilfred Fragoso DO Work Phone: [facility] Work Phone: Start: 11-15-2024 End: 11-15-2024 ambulatory [facility] Work Phone: Start: 11-15-2024 End: 11-15-2024 Patient encounter procedure [facility] Work Phone: Start: 10-15-2024 End: 10-15-2024 Orders Only Wilfred Fragoso DO Work Phone: [facility] Comment on above: Moderate persistent asthma without complication (Primary Dx) Start: 10-14-2024 End: 10-14-2024 Orders Only Wilfred Fragoso DO Work Phone: [facility] Comment on above: Moderate persistent asthma without complication (Primary Dx) Start: 10-12-2024 End: 10-12-2024 Orders Only Wilfred Fragoso DO Work Phone: [facility] Start: 10-12-2024 End: 10-12-2024 Refill Wilfred Fragoso DO Work Phone: [facility] Start: 10-08-2024 End: 10-08-2024 Orders Only Wilfred Mastersng DO Work Phone: [facility] Start: 09-30-2024 End: 09-30-2024 Refill Wilfred Fragoso DO Work Phone: [facility] Comment on above: Mild intermittent as thma without complication Start: 09-30-2024 End: 09-30-2024 Refill Wilfred Fragoso DO Work Phone: [facility] Comment on above: Mild intermittent as thma without complication Start: 09-10-2024 End: 09-10-2024 [facility] Start: 09-01-2024 End: 09-01-2024 ambulatory [facility] Start: 07-17-2024 End: 07-17-2024 ambulatory [facility] Start: 06-01-2024 End: 06-01-2024 ambulatory [facility] Start: 09-21-2021 End: 09-21-2021 ambulatory Giacomo Juarez Other [facility] Other Start: 09-21-2021 Office outpatient ne w 20 minutes Giacomo Juarez [facility] Start: 09-24-2019 End: 09-24-2019 Patient encounter procedure JESUS ESTRADA Facility:[facility] Start: 06-04-2019 End: 06-05-2019 Patient encounter procedure JESUS ESTRADA Facility:[facility] Start: 12-25-2018 Patient encounter procedure JESUS ESTRADA Facility:[facility] Start: 12-24-2018 End: 12-24-2018 Patient encounter procedure JESUS ESTRADA Facility:[facility] Start: 10-29-2018 Encounter for preprocedural laboratory examination JESUS DIORGUMARO [facility] Start: 10-28-2018 Encounter for other preprocedural examination JESUS DIORGUMARO [facility] Start: 10-28-2018 End: 10-29-2018 Patient encounter procedure JESUS DIORCARLOZLondon Facility:[facility] Start: 10-25-2018 End: 10-26-2018 Patient encounter procedure JESUS KARGUMARO Facility:[facility] Start: 10-22-2018 End: 10-23-2018 Patient encounter procedure JESUS ESTRADA Facility: Encounter for other preprocedural examination JESUS ESTRADA [facility] Encounter for preprocedural laboratory examination JESUS ESTRADA [facility] Procedures Date Procedure Procedure Detail Performing Clinician Start: 05-20-2025 Follow-up visit Follow-up WILFRED FRAGOSO Start: 05-20-2025 Adult depression scr eening assessment Wilfred Fragoso DO Work Phone: Start: 11-17-2024 Plain chest X-ray Floyd Fragoso DO Work Phone: Start: 09-10-2024 Mammography Wilfred gallo DO Work Phone: Start: 12-13-2023 Adult depression scr eening assessment Wilfred Fragoso DO Work Phone: Plan of Treatment Date Care Activity Detail Author Start: 04-27-2030 Screening for malign ant neoplasm of cervix [facility] Start: 05-20-2026 Adult BMI Screening Adult BMI Screen ing [facility] Start: 05-20-2026 Depression Screening Depression Scre ening [facility] Start: 05-20-2026 Tobacco Screening Tobacco Screening [facility] Start: 12-30-2025 Adult BMI Screening Adult BMI Screen ing [facility] Start: 12-30-2025 Tobacco Screening Tobacco Screening [facility] Start: 09-10-2025 Screening for malign ant neoplasm of breast Mammogram [facility] Start: 09-01-2025 Adult BMI Screening Adult BMI Screen ing [facility] Start: 09-01-2025 Tobacco Screening Tobacco Screening [facility] Start: 05-26-2025 End: 05-26-2026 MR Lumbar spine WO contrast MR lumbar spine wo contrast Imaging High Priority Foot drop, left foot Lumbar radiculopathy Expected: 05/26/2025 (Approximate), Expires: 05/26/2026 [facility] Work Phone: Comment on above: Expected: 05/26/2025 (Approximate), Expires: 05/26/2026 Start: 05-26-2025 End: 05-26-2025 Patient encounter procedure 05/26/2025 10:15 AM EDT Office Visit [facility] [address] [place] [address] Rodríguez Campos PA [address] [place] [address] Right hip pain (Primary Dx) [facility] Comment on above: Right hip pain (Prim ras Dx) Start: 05-20-2025 End: 05-20-2025 Patient encounter procedure 05/20/2025 4:30 PM EDT Office Visit [facility] [address] [place] [id number] Wilfred Fragoso DO [address] [place] [address] [facility] Start: 05-17-2025 COVID-19 Vaccine ( season) COVID-19 Vaccine ( season) [facility] Start: 05-17-2025 Influenza vaccination P [facility] Start: 05-14-2025 CT angiography of thorax CT angio chest PE protocol [facility] Start: 05-14-2025 CT Chest [facility] Start: 05-14-2025 Plain chest X-ray XR chest 1V portab le [facility] Start: 05-14-2025 XR Chest Single view [facility] Start: 05-14-2025 X-ray of lumbar spin e, two or three views XR lumbar spine 2-3V* [facility] Start: 05-14-2025 XR Lumbar spine 2 or 3 Views [facility] Start: 05-13-2025 End: 05-13-2025 Patient encounter procedure 05/13/2025 11:20 AM EDT Office Visit [facility] [address] [place] [address] Ileana Duarte, PRESS OPERATOR [employer] [address] [place] [address] [facility] Start: 04-27-2025 End: 06-26-2026 DBT Breast - bilateral screening Bilateral screening mammogram with tomosynthesis Imaging Routine Other screening mammogram Expected: 04/27/2025, Expires: 06/26/2026 [facility] Comment on above: Expected: 04/27/2025 , Expires: 06/26/2026 Start: 04-27-2025 End: 04-27-2026 Follicle stimulating hormone Follicle stimulating hormone Lab Routine Menopausal symptoms Expected: 04/27/2025 (Approximate), Expires: 04/27/2026 [facility] Comment on above: Expected: 04/27/2025 (Approximate), Expires: 04/27/2026 Start: 04-27-2025 End: 04-27-2026 Thyrotropin [Units/volume] in Serum or Plasma TSH Lab Routine Menopausal symptoms Expected: 04/27/2025 (Approximate), Expires: 04/27/2026 [facility] Comment on above: Expected: 04/27/2025 (Approximate), Expires: 04/27/2026 Start: 04-27-2025 End: 04-27-2025 Patient encounter procedure 04/27/2025 1:00 PM EDT Office Visit [facility] [address] [facility] [address] [place] [id number] Michele Medrano MD [address] [facility] [address] [place] [address] Well woman exam with routine gynecological exam; Cervical cancer screening; Screening for HPV (human papillomavirus); Other screening mammogram [facility] Comment on above: Well woman exam with routine gynecological exam; Cervical cancer screening; Screening for HPV (human papillomavirus); Other screening mammogram Start: 12-12-2024 Depression Screening Depression Scre ening [facility] Start: 11-17-2024 End: 11-17-2025 XR Chest PA and Lateral X-ray chest 2 views Imaging Routine Influenza A Expected: 11/17/2024, Expires: 11/17/2025 [facility] Work Phone: Comment on above: Expected: 11/17/2024 , Expires: 11/17/2025 Start: 05-17-2024 COVID-19 Vaccine ( season) COVID-19 Vaccine ( season) [facility] Start: 05-17-2024 Influenza vaccination Influenza Vacc ine [facility] Start: 2010 Screening for malign ant neoplasm of cervix [facility] Start: 2001 Screening for malign ant neoplasm of cervix Pap Smear [facility] Start: 1999 DTaP,Tdap and Td Vaccines (1 - Tdap) DTaP,Tdap and Td Vaccines (1 - Tdap) [facility] Bacteria identified in Urine by Culture Urine culture Microbiology Routine Pelvic pain in female Cystocele with rectocele Urinary retention with incomplete bladder emptying Ordered: 04/27/2025 [facility] Comment on above: Ordered: 04/27/2025 End: 05-20-2026 Comprehensive metabolic 2000 panel - Serum or Plasma Comprehensive metabolic panel Lab Routine Well adult exam 1 Occurrences starting 05/20/2025 until 05/20/2026 [email or web address] Work [facility]: Comment on above: 1 Occurrences starti ng 05/20/2025 until 05/20/2026 End: 05-20-2026 EMG EMG Neurology Routine Paresthesia of skin 1 Occurrences starting 05/20/2025 until 05/20/2026 [facility] Comment on above: 1 Occurrences starti ng 05/20/2025 until 05/20/2026 IGP, APT HPV,RFX 16/18,45 IGP, APT HPV,RFX 16/18,45 Lab Routine Cervical cancer screening Screening for HPV (human papillomavirus) Ordered: 04/27/2025 [facility] Work Phone: Comment on above: Ordered: 04/27/2025 End: 05-20-2026 Lipid panel Lipid panel Lab Routine Well adult exam 1 Occurrences starting 05/20/2025 until 05/20/2026 [facility] Comment on above: 1 Occurrences starti ng 05/20/2025 until 05/20/2026 Patient Education [facility] Work Phone: Patient referral [facility] Work Phone: End: 05-20-2026 TSH with Reflex TSH with Reflex Lab Routine Paresthesia of skin 1 Occurrences starting 05/20/2025 until 05/20/2026 [facility] Comment on above: 1 Occurrences starti ng 05/20/2025 until 05/20/2026 Urinalysis complete panel - Urine Urinalysis with reflex microscopic Lab Routine Pelvic pain in female Cystocele with rectocele Urinary retention with incomplete bladder emptying Ordered: 04/27/2025 [facility] Comment on above: Ordered: 04/27/2025 Immunizations Immunization Date Immunization Notes Care Provider Lorraine wiley 06-23-2024 tuberculin skin test ; purified protein derivative solution, intradermal Wilfred Furlong DO Work Phone: [facility] 09-26-2020 hepatitis B vaccine, adult dosage Wilfred Furlong DO Work Phone: [facility] [facility] 09-26-2020 measles, mumps and rubella virus vaccine Wilfred Furlong DO Work Phone: [facility] 08-05-2020 influenza, injectabl e, quadrivalent, preservative free Wilfred Furlong DO Work Phone: [facility] 08-05-2020 influenza virus vaccine, unspecified formulation Wilfred Furlong DO Work Phone: [facility] 06-28-2018 influenza virus vaccine, unspecified formulation Wilfred Furlong DO Work Phone: [facility] 06-16-2015 influenza virus vaccine, unspecified formulation Wilfred Furlong DO Work Phone: [facility] Payers Date Payer Category Payer Commercial Managed C are - POS [employer] [id number] 2023 Managed Care O (unspecified) [employer] [id number] 2023 Private Health Insurance [id number] 1980 Unknown [id number] [id number] 9.259 1980 Unknown [id number] 2.16840.1.890248.3.57 9.259 1980 Unknown [id number] 2.16840.1.104321.3.57 9.259 1980 Unknown [id number] 2.16840.1.047121.3.57 9.259 1980 Unknown [id number] 2.16.840.1.863647.3.57 9.259 1980 Unknown [id number] 2.16.840.1.422353.3.57 9.259 1980 Unknown [id number] 2.16.840.1.809227.3.57 9.2.593 1980 Unknown [id number] 2.16.840.1.355195.3.57 9.2.1286 1980 Unknown [id number] 2.16.840.1.875267.3.57 9.2.1286 1980 Unknown [id number] 2.16.840.1.845232.3.57 9.2.1286 1980 Unknown [id number] 2.16.840.1.436894.3.57 9.2.1286 1980 Unknown [id number] 2.16.840.1.297809.3.57 9.2.1286 1980 Unknown [id number] 2.16.840.1.059931.3.57 9.2.1286 1980 Unknown [id number] 2.16.840.1.036368.3.57 9.2.1286 1980 Unknown [id number] 2.16.840.1.217966.3.57 9.2.1259 1980 Unknown [id number] 2.16.840.1.662401.3.57 9.2.1259 1980 Unknown [id number] 2.16.840.1.965921.3.57 9.2.1259 1959 Private Health Insurance [id number] 1959 Self-pay 1959 Unknown [id number] Private Health Insurance [id number] Unknown [id number] 2.16.840.1.961396.3.57 9.2.531 Unknown [id number] [id number] 9.2.531 Social History Date Type Detail Facility Start: 09-01-2024 End: 05-26-2025 Sex Assigned At [facility] Other Start: 08-22-2023 End: 01-23-2024 Tobacco smoking status NHIS Ex-smoker [facility] Start: 11-17-2024 History of tobacco use Current smoker [facility] Start: 08-22-2023 End: 01-23-2024 Tobacco use and exposure Smokeless tobacco non-user [facility] Start: 09-10-2024 End: 05-20-2025 Alcoholic beverage intake Current drinker of alcohol (finding) [facility] Start: 09-01-2024 End: 05-26-2025 History of Social function [facility] Has the Signature, or water [facility] threatened to shut off services in your home in past 12Mo No [facility] Are you now , , , , never or living with a partner? [facility] How often to you hav e a drink containing alcohol? Monthly or less [facility] How many standard drinks containing alcohol do you have on a typical day? 1 or 2 [facility] How often do you hav e 6 or more drinks on 1 occasion? Never [facility] How hard is it for y ou to pay for the very basics like food, housing, medical care, and heating Not hard at all [facility] Do you feel stress - tense, restless, nervous, or anxious, or unable to sleep at night because your mind is troubled all the time - these days [OSQ] Not at all [facility] Start: 06-02-2019 Alcohol Comment occassional [facility] Start: 1980 Sex assigned at Female [facility] Start: 04-21-2015 End: 11-17-2024 Sex Female (finding) [facility] Start: 07-01-2019 Gender identity Identifies as female gender (finding) [facility] Start: 07-01-2019 Sexual orientation Heterosexual (finding) [facility] History of tobacco use Cigarette Smoker [facility] Start: 01-23-2024 End: 05-26-2025 Alcoholic beverage intake Lifetime non-drinker (finding) [facility] Start: 1980 Sex assigned at Not on file [facility] Start: 05-14-2025 Tobacco smoking status NHIS Smokes tobacco daily (finding) [facility] Clinical Notes 09-21-2021 to 06-01-2025 Telephone Encounter - STEFANY Ponce - 06/01/2025 4:41 PM EDTTelephone Encounter - STEFANY Ponce - 06/01/2025 4:41 PM EDTMattSTEFANY Sanders - 05/26/2025 10:15 AM EDT Note Date & Type Note Facility 06-01-2025 Telephone encounter Note Spoke with pt Having (L) Foot drop: MRI with out finding for compression Pt has burning in skin abdomen. Vertigo Paresthesias other parts of her body. Pt has appt with Dr. Saez end of month I feel she needs EMG, vs work up for MS given multiple findings.. can we see if she can get a sooner appt for evaluation.. [facility] Work Phone: 06-01-2025 Miscellaneous Notes Spoke with pt Having (L) Foot drop: MRI with out finding for compression Pt has burning in skin abdomen. Vertigo Paresthesias other parts of her body. Pt has appt with Dr. Saez end of month I feel she needs EMG, vs work up for MS given multiple findings.. can we see if she can get a sooner appt for evaluation.. documented in this encounter [facility] 05-26-2025 History of Presen t illness Narrative Images from the original note were not included. Orthopedic Office note: NAME: Deepti Arellano : 1980 EST PT WITH NEW C/O NUMBNESS B/L LEGS - ON 04/29/25 (3 WKS 6 DAYS), SHE WAS WALKING AND ALL THE SUDDEN SEEMED LIKE SHE HAD DROP FOOT ON THE LT FOOT. STARTED HAVING NUMBNESS IN LT LEG. OVER TIME, SHE STARTED GETTING NUMBNESS ON RT LEG WELL. LT IS MUCH WORSE THAN RT. WENT TO [facility] [place]; 05/14/25- XRAY. F/U WITH PCP, GIVEN PREDNISONE AND GABAPENTIN. XRAY LUMBAR [facility] 05/14/25 (PUSHED TO CHANGE PACS) PREDNISONE PER PCP - LITTLE RELIEF PAIN IN LEGS BY END OF SHIFT, FEELS TIRED. NUMBNESS IN LT ANTERIOR BYRNE TO FOOT AND GREAT TOE. CONSTANT NUMBNESS. UNABLE TO MOVE LT GREAT TOE. HAS BEEN OFF OF PREDNISONE FOR A WEEK, HAD LITTLE RELIEF. +GABAPENTIN, LITTLE RELIEF. +TYL BEFORE WORK. FEELS LIKE SHE IS DRAGGING LT FOOT BY END OF DAY. INTERMITTENT SWELLING IN LT ANKLE. SOMETIMES WAKES AT HS. DENIES BOWEL/BLADDER CHANGES. Physical Exam General Appearance: Normal. Respiratory: No acute distress. Cardiovascular: Posterior tibialis pulses are 2+. Musculoskeletal: Low back: Appears normal, mild tenderness in the left paravertebral lumbar region at the waist band, no tenderness over the SI joint. Bilateral hips and knees: Painless range of motion, quad and hamstring strength 5 out of 5, hip flexion strength and extension 5 out of 5. Left ankle: Plantar flexion 5 out of 5, dorsiflexion 3 minus, 3 out of 5. Right ankle: Dorsiflexion and plantar flexion 5 out of 5, full range of motion of the great toe without difficulty. Others: No significant edema. Compartments are soft. Skin: Warm and dry, no rash. Neurological: Chronic paresthesias in the L5 dermatome involving the lateral byrne, dorsum of the foot, and big toe. Associated drop foot and inability to dorsiflex the big toe. Reflexes are 1+ symmetric patella and Achilles. No clonus. Orders Placed This Encounter Procedures MR lumbar spine wo contrast Standing Status: Future Expected Date: 05/26/2025 Expiration Date: 05/26/2026 Scheduling Instructions: MRI LUMBAR SPINE WYATT BELTRAN (URGENT) PLEASE CALL PT TO SCHEDULE Is the patient ?: No Reason for exam:: LUMBAR RADICULOPATHY Procedures Results 05/14/25 Xray Lumbar spine [facility] reviewed: no fracture ICD-10-CM 1. Foot drop, left foot M21.372 MR lumbar spine wo contrast 2. Lumbar radiculopathy M54.16 MR lumbar spine wo contrast Assessment & Plan Acute onset drop foot without trauma She presents with an inability to dorsiflex her great toe. There are no signs of peroneal nerve discomfort. She has left lower back pain with occasional radiation to the left leg. Concerns for an L5 disk herniation causing her symptoms were discussed. She reports prior similar paresthesias in the left upper extremity, which resolved over time after being placed on medications by neurology following a normal EMG. She does not report any bowel, bladder, or eye issues. The potential for a nerve condition such as MS was also discussed. Diagnostic plan: An MRI of her lower back should be obtained immediately for further investigation into her symptoms. Treatment plan: A potential AFO brace was discussed to help prevent falls, which she may purchase independently. She is encouraged to keep a follow-up with her neurologist for a potential EMG if the MRI of her lumbar spine is negative. Clinical decision making: She verbally consented to this plan. Follow-up: She will be seen again pending her MRI report for further discussion of treatment and possible referral to neurosurgery or more prompt follow-up with her neurologist for evaluation. Questions answered in laymen terms at the bedside. The diagnosis, home exercise plan and any ongoing restrictions/ recommendations reviewed. If unable to be reached in office, I recommend evaluation at nearest Emergency Room if any symptoms worsened or new symptoms develop for requiring urgent evaluation. Visit was preformed using [email or web address]-tearoom host/hostess speech recognition. documented in this encounter [facility] 05-20-2025 History of Presen t illness Narrative Subjective Patient ID: Deepti Landon [facility] is a 44 y.o. female. Deepti is here today for f/u after ER visit for numbness in right foot. She noticed several days ago that her foot was dragging as she was walking and she had no sensation from her lateral right foot. On the day she went to the ER her right foot was swollen and she could not plantar flex the foot. At the ER lab results were non-concerning. She notes that she has had sciatica previously and ends some days with edema in b/l feet. MRI of spine was normal. MRI of pelvis in 2019 was significant for bladder mass but otherwise insignificant. PSH significant for hysterectomy and knee replacement. She has had a previous history of similar numbness in left arm that was managed with gabapentin and self resolved after several weeks. She notes that she has also had episodes of hypertension associated with facial swelling on her left side and has recently had increased frequency in headaches. Denies any chest pain, shortness of breath, difficulty urinating, any changes in vision, syncope, skin changes. She is adopted and does not know her family history. Her blood pressure was high in the ER but did come down. It has been high when she checked it. It was also high in the mornings when she checked it while on metoprolol but it comes down later in the day. She is concerned that it is high in the morning. She is asymptomatic. Follow-up Associated symptoms include numbness and weakness. Pertinent negatives include no arthralgias, chest pain, fatigue, headaches or joint swelling. The following portions of the patient's history were reviewed and updated as appropriate: allergies, current medications, past family history, past medical history, past social history, past surgical history, problem list, and medication reconciliation was completed including current medication and post discharge medication. Review of Systems Constitutional: Negative. Negative for activity change, appetite change, fatigue and unexpected weight change. HENT: Negative. Eyes: Negative. Negative for visual disturbance. Respiratory: Negative. Negative for chest tightness and shortness of breath. Cardiovascular: Negative. Negative for chest pain. Gastrointestinal: Negative. Endocrine: Negative. Genitourinary: Negative. Negative for dysuria. Musculoskeletal: Positive for back pain and gait problem. Negative for arthralgias, joint swelling and neck stiffness. Skin: Negative. Negative for color change. Allergic/Immunologic: Negative. Neurological: Positive for weakness and numbness. Negative for syncope, facial asymmetry and headaches. Hematological: Negative. Psychiatric/Behavioral: Negative. Negative for agitation, behavioral problems and confusion. Objective Physical Exam Constitutional: General: She is not in acute distress. Appearance: Normal appearance. She is normal weight. She is not ill-appearing, toxic-appearing or diaphoretic. HENT: Head: Normocephalic and atraumatic. Musculoskeletal: General: No swelling, tenderness, deformity or signs of injury. Right lower leg: No edema. Left lower leg: No edema. Neurological: General: No focal deficit present. Mental Status: She is alert and oriented to person, place, and time. Mental status is at baseline. Sensory: Sensory deficit present. Motor: Weakness present. Gait: Gait abnormal. Deep Tendon Reflexes: Reflexes abnormal. Reflex Scores: Patellar reflexes are 2+ on the right side and 2+ on the left side. Achilles reflexes are 1+ on the right side and 0 on the left side. Comments: +Tinel's test over left tarsal tunnel Left foot +0 achilles reflex Weakness in plantar flexion and unable to walk on toes Psychiatric: Mood and Affect: Mood normal. Behavior: Behavior normal. Thought Content: Thought content normal. Judgment: Judgment normal. Assessment/Plan Deepti was seen today for follow-up. Diagnoses and all orders for this visit: Paresthesia of skin - Cancel: TSH with Reflex; Future - TSH with Reflex; Future - EMG; Future - TSH with Reflex ER records reviewed. Lumbar spine xray ok per ER visit. She does have sensory and muscular symptoms. Likely neuropathy. Etiology unclear. She did have a positive Tinel's sign over left tarsal tunnel so may have tarsal tunnel syndrome. May have radiculopathy vs other. Check EMG. Continue gabapentin. Primary hypertension Her BP is ok now. I would continue metoprolol and monitor it. She is using a wrist BP home monitor so I recommended an upper arm cuff. Fluctuations in BP readings can be due to anxiety among other things. Well adult exam - Cancel: Lipid panel; Future - Cancel: Comprehensive metabolic panel; Future - Comprehensive metabolic panel; Future - Lipid panel; Future - Lipid panel - Comprehensive metabolic panel Wellness visit not done today but will order the labs and see soon for a wellness visit Note composed in part by Karthik Hillman MS3 [facility] documented [facility] this [facility] History of Presen t illness Narrative Images from the original note were not included. Michele Medrano MD Obstetrics and Gynecology Patient: Deepti Arellano, : 1980 (44 y.o.) DOS 04/27/25 Exam Date: 04/27/2025 HPI: Re-establishing care. Has had care I Jason. She needs yearly exam/PAP. She c/o pelvic pressure/fullness. She has some nonspecific changes in her urination. She fights chronic constipation and has difficulty passing her stool Visit Vitals BP 124/74 Wt 119 lb BMI 18.64 kg/m OB Status Hysterectomy Smoking Status Former BSA 1.6 m OB History Para Term AB Living 4 3 3 0 0 3 SAB IAB Ectopic Multiple Live Births 0 0 0 0 3 # Outcome Date GA Lbr Chalrie/2nd Weight Sex Type Anes PTL Lv 4 3 Term 2 Term 1 Term Obstetric Comments Pap: Not up to date/admits to abnormal Mammo: Up to date/normal Hysterectomy Medication and Allergies Medication Documentation Review Audit Reviewed by Joann Bernstein MA ([employer]) on 04/27/25 at 1258 Medication Order Taking? Sig Documenting Provider Last Dose Status albuterol HFA 90 mcg/act inhaler [id number] Inhale 2 puffs every 4 (four) hours if needed Deepti Saez DO Active ALPRAZolam (Xanax) 0.25 MG tablet [id number] Take 0.25 mg by mouth 2 (two) times a day as needed for anxiety Deepti Saez DO Active Discontinued 04/27/25 1258 Discontinued 04/27/25 1258 Discontinued 04/27/25 1258 No Known Allergies Past Medical History: Diagnosis Date Asthma (HCC) Depression 2020 History of being hospitalized 11/2023 neck pain/numbness and tingling HTN (hypertension) Lip lesion 2014 Lower lip Tibia/fibula fracture Past Surgical History: Procedure Laterality Date HYSTERECTOMY 2019 KNEE SURGERY 2015 RT KNEE SCOPE- PER DR CORREA PELVIC LAPAROSCOPY x2 SKIN LESION EXCISION VAGINAL DELIVERY x3 Physical Exam: Objective Physical Exam Constitutional: Appearance: Normal appearance. Genitourinary: Vulva and bladder normal. Vaginal cuff intact. No vaginal discharge, tenderness or bleeding. Right Adnexa: not palpable. Left Adnexa: not palpable. Cervix is absent. Uterus is absent. Bladder exam comments: Gr II cystocoel. Rectum: Rectal exam comments: Distal rectocole. Breasts: Right: Normal. Left: Normal. Pulmonary: Effort: Pulmonary effort is normal. Abdominal: General: Abdomen is flat. Palpations: Abdomen is soft. Neurological: Mental Status: She is alert. Assessment/Plan ICD-10-CM 1. Well woman exam with routine gynecological exam Z01.419 2. Cervical cancer screening Z12.4 IGP, APT HPV,RFX 16/18,45 3. Screening for HPV (human papillomavirus) Z11.51 IGP, APT HPV,RFX 16/18,45 4. Other screening mammogram Z12.31 Bilateral screening mammogram with tomosynthesis 5. Dyspareunia in female N94.10 6. Pelvic pain in female R10.2 Urine culture Urinalysis with reflex microscopic 7. Cystocele with rectocele N81.10 Urine culture N81.6 Urinalysis with reflex microscopic 8. Urinary retention with incomplete bladder emptying R33.9 Urine culture Urinalysis with reflex microscopic 9. Menopausal symptoms N95.1 Follicle stimulating hormone TSH Follicle stimulating hormone TSH Orders Placed This Encounter Procedures Urine culture Print requisition?: Yes Bilateral screening mammogram with tomosynthesis U/S and spot compression if indicated Standing Status: Future Expected Date: 04/27/2025 Expiration Date: 06/26/2026 Reason for exam:: screen Is the patient ?: No IGP, APT HPV,RFX 16/18,45 Print requisition?: Yes Urinalysis with reflex microscopic Print requisition?: Yes Follicle stimulating hormone Standing Status: Future Number of Occurrences: 1 Expected Date: 04/27/2025 Expiration Date: 04/27/2026 Print requisition?: No TSH Standing Status: Future Number of Occurrences: 1 Expected Date: 04/27/2025 Expiration Date: 04/27/2026 Print requisition?: Yes documented in this encounter [facility] 04-13-2025 Miscellaneous Notes Called to inform patient that the provider will be out of the office on 05/13 and we need to reschedule their appointment. Patient will call back to reschedule their appointment documented in this encounter [facility] 04-13-2025 Telephone encounter Note Called to inform patient that the provider will be out of the office on 05/13 and we need to reschedule their appointment. Patient will call back to reschedule their appointment [facility] 12-30-2024 History of Presen t illness Narrative Subjective Patient ID: Deepti Arellano is a 44 y.o. female. Deepti presents today for an asthma follow-up. She is feeling really good with her Symbicort inhaler. It has really made a difference in her flare-ups. No recent flare-ups. She uses albuterol rescue inhaler or her nebulizer as needed. She needs refills on her inhalers. She had pulmonary function studies done in September. She is using Xanax rarely. She had 10 pills in April and still has 1 left. Her stress has been better lately. She was caring for her grandmother who ultimately and it up in a senior living and was in hospice 2 months ago. She stopped her Trintellix and is doing well with depression. She no longer feels depressed. The following portions of the patient's history were reviewed and updated as appropriate: allergies, current medications, past family history, past medical history, past social history, past surgical history, problem list, and medication reconciliation was completed including current medication and post discharge medication. Review of Systems Objective Physical Exam Vitals reviewed. Exam conducted with a rim buster present (Ryan Kelley MS 3). Constitutional: General: She is not in acute distress. Appearance: Normal appearance. She is normal weight. She is not ill-appearing. HENT: Head: Normocephalic. Eyes: General: No scleral icterus. Extraocular Movements: Extraocular movements intact. Conjunctiva/sclera: Conjunctivae normal. Cardiovascular: Rate and Rhythm: Normal rate and regular rhythm. Pulses: Normal pulses. Heart sounds: Normal heart sounds. No murmur heard. Pulmonary: Effort: Pulmonary effort is normal. No respiratory distress. Breath sounds: Normal breath sounds. No wheezing, rhonchi or rales. Musculoskeletal: Cervical back: Neck supple. Lymphadenopathy: Cervical: No cervical adenopathy. Neurological: General: No focal deficit present. Mental Status: She is alert and oriented to person, place, and time. Psychiatric: Attention and Perception: Attention and perception normal. Mood and Affect: Mood and affect normal. Speech: Speech normal. Behavior: Behavior normal. Behavior is cooperative. Thought Content: Thought content normal. Cognition and Memory: Cognition and memory normal. Judgment: Judgment normal. Assessment/Plan Deepti was seen today for asthma. Diagnoses and all orders for this visit: Moderate persistent asthma without complication - budesonide-formoteroL (SYMBICORT) 80-4.5 mcg/actuation inhaler; Inhale 2 puffs in the morning and 2 puffs before bedtime. Doing well on Symbicort maintenance therapy. Will change albuterol to Airsupra 2 puffs Q4 hours prn. PF he has discussed and were essentially normal but did respond to bronchodilators. Symptomatically she is doing much better with ICS-LABA combination Anxiety - ALPRAZolam (XANAX) 0.25 mg tablet; Take 1 tablet (0.25 mg total) by mouth 2 (two) times a day as needed for anxiety. She has occasional episodes of anxiety which she uses Xanax for as needed. She uses it rarely. It is effective when she uses it. It improves her quality of life. It has a high risk medication. The OARRS/MAPPS database was reviewed today and found to be appropriate. No indication of medication diversion, or non compliance. Recurrent major depressive disorder, in full remission She longer requires medication. Call if symptoms recur. Other orders - albuterol-budesonide (AIRSUPRA) 90-80 mcg/actuation HFA aerosol inhaler; Inhale 2 puffs every 4 (four) hours as needed (wheeze, SOB). documented [facility] 11-20-2024 Miscellaneous Notes She should have an asthma follow up appointment documented in this encounter [facility] 11-20-2024 Telephone encounter Note She should have an asthma follow up appointment [facility] 11-15-2024 Evaluation note Diagnosis Onset Date Resolution Influenza A acute November 15 11:13am [facility] Work Phone: 1(864) 404-648901-06-2022 Evaluation note* Encounter Date Diagnosis Assessment Notes Treatment Notes Treatment Clinical Notes Sep, Contact with and (suspected) exposure to other viral communicable diseases (ICD-10 - Z20.828) Discussed neg covid test in office today. [...] Patient care instructions given in writting by [facility] document. [facility] Other Evaluation note* Diagnosis Kidney stone- Primary Calculus of kidney Urinary tract infection without hematuria, site unspecified Hematuria, unspecified type Urinary urgency- Primary Urgency of urination Urinary urgency- Primary Urgency of urination Mass of bladder Hematuria, unspecified type Urinary urgency- Primary Urgency of urination Hematuria, unspecified type- Primary Urinary urgency Urgency of urination Mild intermittent asthma without complication [facility] Kidney stone- Primary Calculus of kidney Urinary tract infection without hematuria, site unspecified Hematuria, unspecified type Urinary urgency- Primary Urgency of urination Urinary urgency- Primary Urgency of urination Mass of bladder Hematuria, unspecified type Urinary urgency- Primary Urgency of urination Hematuria, unspecified type- Primary Urinary urgency Urgency of urination Mild intermittent asthma without complication [facility] Diagnosis Kidney stone- Primary Calculus of kidney Urinary tract infection without hematuria, site unspecified Hematuria, unspecified type Urinary urgency- Primary Urgency of urination Urinary urgency- Primary Urgency of urination Mass of bladder Hematuria, unspecified type Urinary urgency- Primary Urgency of urination Hematuria, unspecified type- Primary Urinary urgency Urgency of urination Moderate persistent asthma without complication- Primary [facility] Diagnosis Kidney stone- Primary Calculus of kidney Urinary tract infection without hematuria, site unspecified Hematuria, unspecified type Urinary urgency- Primary Urgency of urination Urinary urgency- Primary Urgency of urination Mass of bladder Hematuria, unspecified type Urinary urgency- Primary Urgency of urination Hematuria, unspecified type- Primary Urinary urgency Urgency of urination Moderate persistent asthma without complication- Primary [facility] note[facility] assessment information available [facility] Work Phone: Evaluation note* Diagnosis Kidney stone- Primary Calculus of kidney Urinary tract infection without hematuria, site unspecified Hematuria, unspecified type Urinary urgency- Primary Urgency of urination Urinary urgency- Primary Urgency of urination Mass of bladder Hematuria, unspecified type Urinary urgency- Primary Urgency of urination Hematuria, unspecified type- Primary Urinary urgency Urgency of urination Influenza A- Primary Influenza with other respiratory manifestations [facility] Diagnosis Kidney stone- Primary Calculus of kidney Urinary tract infection without hematuria, site unspecified Hematuria, unspecified type Urinary urgency- Primary Urgency of urination Urinary urgency- Primary Urgency of urination Mass of bladder Hematuria, unspecified type Urinary urgency- Primary Urgency of urination Hematuria, unspecified type- Primary Urinary urgency Urgency of urination Moderate persistent asthma without complication [facility] Diagnosis Kidney stone- Primary Calculus of kidney Urinary tract infection without hematuria, site unspecified Hematuria, unspecified type Urinary urgency- Primary Urgency of urination Urinary urgency- Primary Urgency of urination Mass of bladder Hematuria, unspecified type Urinary urgency- Primary Urgency of urination Hematuria, unspecified type- Primary Urinary urgency Urgency of urination Mild intermittent asthma without complication [facility] Diagnosis Kidney stone- Primary Calculus of kidney Urinary tract infection without hematuria, site unspecified Hematuria, unspecified type Urinary urgency- Primary Urgency of urination Urinary urgency- Primary Urgency of urination Mass of bladder Hematuria, unspecified type Urinary urgency- Primary Urgency of urination Hematuria, unspecified type- Primary Urinary urgency Urgency of urination Moderate persistent asthma without complication- Primary Anxiety Anxiety state, unspecified Recurrent major depressive disorder, in full remission [facility] Diagnosis Kidney stone- Primary Calculus of kidney Urinary tract infection without hematuria, site unspecified Hematuria, unspecified type Urinary urgency- Primary Urgency of urination Urinary urgency- Primary Urgency of urination Mass of bladder Hematuria, unspecified type Urinary urgency- Primary Urgency of urination Hematuria, unspecified type- Primary Urinary urgency Urgency of urination Anxiety Anxiety state, unspecified [facility] Diagnosis Well woman exam with routine gynecological exam- Primary Routine gynecological examination Cervical cancer screening Screening for malignant neoplasm of the cervix Screening for HPV (human papillomavirus) Special screening examination for human papillomavirus (HPV) Other screening mammogram Dyspareunia in female Pelvic pain in female Unspecified symptom associated with female genital organs Cystocele with rectocele Urinary retention with incomplete bladder emptying Incomplete bladder emptying Menopausal symptoms Symptomatic menopausal or female climacteric states [facility] Diagnosis Kidney stone- Primary Calculus of kidney Urinary tract infection without hematuria, site unspecified Hematuria, unspecified type Urinary urgency- Primary Urgency of urination Urinary urgency- Primary Urgency of urination Mass of bladder Hematuria, unspecified type Urinary urgency- Primary Urgency of urination Hematuria, unspecified type- Primary Urinary urgency Urgency of urination Paresthesia of skin- Primary Well adult exam Routine general medical examination at a health care facility Primary hypertension Unspecified essential hypertension [facility]* Diagnosis Foot drop, left foot- Primary Lumbar radiculopathy Thoracic or lumbosacral neuritis or radiculitis, unspecified documented [facility] this encounter [facility] N[facility]ative - Reported* Type Description Date Medical History asthma Surgical History LAPAROSCOPY Surgical History ABLASION MOWGLI Other Hospital Discharge instructions Additional Instructions You were seen and evaluated in the ER with symptoms most consistent with a viral-illness. Continue to treat symptoms supportively with OTC Tylenol, ibuprofen, Flonase, cough medicine such as Delsym, Mucinex, and Robitussin. Recommend continuation of nebulized albuterol at home. Its important you continue to drink plenty of fluids to remain hydrated and loosen phlegm that can build up. It is also important to get lots of rest and to remain home if you are febrile. It is very important that you follow up with your primary care provider in the next 2-3 days unless instructed to do otherwise. If you do not have a primary care provider, you can contact [facility] and ask about being established for primary care services. If you require specialist follow up, such as with an orthopedic physician, global account manager, urologist, or other medical specialty, you should contact the specialty clinic as soon as possible to schedule a follow up appointment. If you are established with a specialist, you can contact your preferred physician for follow up. If you are not already established with the specialist you need, you may have contact information provided to you with these discharge instructions. If you are being prescribed medications, take exactly as prescribed. Antibiotics, if prescribed, should be taken until the entire course is completed. You should not have left over antibiotics. Continue to take any previously prescribed home medications unless instructed otherwise. If you are experiencing fever or mild to moderate pain, you should first take Tylenol or ibuprofen available [id number]. Medications, if prescribed to treat pain from the emergency department, are intended to provide relief for severe pain that is not relieved by other methods of pain relief, you should use these medications cautiously as many are known to cause sedation/sleepiness, increased risk for falls, and other effects such as constipation. If your symptoms worsen please return to the ED or [facility]: Hospital Discharge instructions Additional Instructions As we discussed, we do not know the specific reason for your your numbness and weakness issues tonight. It could be from a herniated disc or from peripheral nerve problem. Boot is to protect your foot because you cannot lift your toe. You wanted to try gabapentin because it worked with the neuropathy of your arm and I think this is reasonable. Follow-up with Dr. Correa as you have scheduled. We are happy to see you here if there are any significant problems or concerns.[facility] Work Phone: InstructionsNot on filedocumented in this encounter How do you roll? SystemInstructionsNot on filedocumented in this encounter [facility] filedocument[facility] in [facility] encounter [facility] on filedocumented in this encounter [facility] on filedocumented in this encounter [facility] on filedocumented in this encounter [facility] on filedocumented in this encounter [facility]ructionsNot on filedocumented in this encounter [facility]ructions[facility] on filedocumented in this encounter [facility]ructionsNot on filedocumented in this encounter [facility] System[facility]ructionsNot on filedocumented in this encounter [facility] System[facility] (narrative)* Medication Prior Authorization - Pending Review Specialty Diagnoses / Procedures Referred By Michael bowles Referred To Contact Wilfred Fragoso DO [address] [facility], [facility] [place] [address] Phone: tel: fax: Referral ID Status Reason Start Date Expiration Date V isits Requested Visits Authorized [id number] Pending Review 1 1 [facility] (narrative)No reason for referral [facility] Work Phone: Summary Purpose Family History No Family History Records Found Relationship Condition Age at Onset Recorded Date/T jass mother Malignant neoplasm Unknown Advance Directives No Advanced Directives Records Found Advance Directive Response Recorded Date/ Time Advance Directives No November 15 11:12am Advance Directive Response Recorded Date/ Time Advance Directives No November 15 12:12pm Chief Complaint and Reason for Visit Chief Complaint Admit Date Chest congestion November 15, 2024 11:1 3am Chief Complaint Admit Date Chest congestion November 15, 2024 11:1 3am sob, dizzy November 17, 2024 11:4 2am Reason for Visit Admit Date Influenza A November 15, 2024 11:1 3am Chief Complaint Admit Date numbness, tingling in legs May 13, 2025 10:27pm Additional Source Comments INFORMATION SOURCE (unrecogn ized section and content) DATE CREATED AUTHOR 09/30/2019 [facility] [place] [facility] DATE CREATED AUTHOR AUTHOR'S ORGANIZ ATION 10/16/2024 [facility] DATE CREATED AUTHOR AUTHOR'S ORGANIZ ATION 05/23/2025 [facility] DATE CREATED AUTHOR AUTHOR'S ORGANIZ ATION 06/02/2025 [facility] DATE CREATED AUTHOR AUTHOR'S ORGANIZ ATION 06/04/2025 [facility] REASON FOR VISIT (unrecogniz ed section and content) Reason Comments Med Refill Reason Onset Date Comments Med Refill 09/30/2024 Reason Comments Med Change Request Reason Onset Date Comments Med Refill 11/20/2024 Reason Onset Date Comments Med Refill 11/20/2024 Reason Comments Asthma F/U Reason Onset Date Comments Med Refill 03/23/2025 Reason Comments Follow-up [facility] - few hours -le ft foot drop,sciatic,sensation of hotness on lap. Theses feelings are still going on today. Radiates down. Reason Comments Pain Specialty Diagnoses / Procedures Referred By Michael bowles Referred To Contact Orthopaedic Surgery Diagnoses numbness, tingling in legs Procedures IN UNLISTED EVALUATION AND MANAGEMENT SERVICE [facility] [address] [place] [address] Jr. Jose Manuel Correa, [address] [place] [address] Phone: tel: fax: Referral ID Status Reason Start Date Expiration Date Visits Re quested Visits Authorized [id number] Closed 05/14/2025 11/10/2025 1 1 Care Teams (unrecognized sec tion and content) Front End Web Designer Relationship Specialty Start Date End Date Wilfred Fragoso DO [address], [place] [address] PCP - General Family Medicine 05/20/19 Front End Web Designer Relationship Specialty Start Date End Date Wilfred Fragoso DO [address], [place] [address] PCP - General Family Medicine 05/20/19 Front End Web Designer Relationship Specialty Start Date End Date Wilfred Fragoso DO [address], [place] [address] PCP - General Family Medicine 05/20/19 Front End Web Designer Relationship Specialty Start Date End Date Wilfred Fragoso DO [address] [place] [address] PCP - General Family Medicine 05/20/19 Front End Web Designer Relationship Specialty Start Date End Date Wilfred Fragoso DO [address], [place] [address] PCP - General Family Medicine 05/20/19 Front End Web Designer Relationship Specialty Start Date End Date Wilfred Fragoso DO [address], [place] [address] PCP - General Family Medicine 05/20/19 Team Status: Active Member Role Status Dates Wilfredjudi ReedDO sabino Primary Care Provider Active Team Status: Inactive Member Role Status Dates Wilfred BriannaDO sabino Primary Care Provider Active Start: November 15, 2024 End: November 15, 2024 Joann Tucker APRN Attending Provider Active S tart: November 15, 2024 End: November 15, 2024 Team Status: Inactive Member Role Status Dates Wilfred Fragoso DO Primary Care Provider Active Start: November 17, 2024 End: November 17, 2024 Yuri Morillo PA-C Emergency Provider Active Start: November 17, 2024 End: November 17, 2024 Front End Web Designer Relationship Specialty Start Date End Date Wilfred Fragoso DO [address], [place] [address] PCP - General Family Medicine 05/20/19 Front End Web Designer Relationship Specialty Start Date End Date FouziaWilfred [address] [place] [address] PCP - General Family Medicine 05/20/19 Front End Web Designer Relationship Specialty Start Date End Date FouziaWilfred [address] [place] [address] PCP - General Family Medicine 05/20/19 Front End Web Designer Relationship Specialty Start Date End Date Fouzia Wilfred G, [address], [place] [address] PCP - General Family Medicine 05/20/19 Front End Web Designer Relationship Specialty Start Date End Date Wilfred Fragoso TaqueriaDO [address], [place] [address] PCP - General Family Medicine 05/20/19 Front End Web Designer Relationship Specialty Start Date End Date Wilfred Fragoso TaqueriaDO [address] [place] [address] PCP - General Family Medicine 05/20/19 Front End Web Designer Relationship Specialty Start Date End Date Wilfred Fragoso MD [address] [place] [address] PCP - General Family Medicine 03/12/23 Deepti Saez DO [address] [place] [address] Referring Physician Neurology 12/11/23 Front End Web Designer Relationship Specialty Start Date End Date Wilfred Fragoso MD [address], [place] [address] PCP - General Family Medicine 03/12/23 Deepti Saez DO [address] [place] [address] Referring Physician Neurology 12/11/23 Team Status: Inactive Member Role Status Dates Wilfred Fragoso DO Primary Care Provider Active Start: May 13, 2025 End: May 14, 2025 Jae Alcaraz Jr, MD Emergency Provider Active Start: May 13, 2025 End: May 14, 2025 Front End Web Designer Relationship Specialty Start Date End Date Wilfred Fragoso DO [address], [place] [address] PCP - General Family Medicine 05/20/19 Front End Web Designer Relationship Specialty Start Date End Date Wilfred Fragoso DO [address] [place] [address] PCP - General Family Medicine 05/20/19 Front End Web Designer Relationship Specialty Start Date End Date Wilfred Fragoso MD [address], [place] [address] PCP - General Family Medicine 03/12/23 Deepti Saez DO [address] [place] [address] Referring Physician Neurology 12/11/23 Front End Web Designer Relationship Specialty Start Date End Date Wilfred Fragoso MD [address] [place] [address] PCP - General Family Medicine 03/12/23 Deepti Saez DO [address] [place] [address] Referring Physician Neurology 12/11/23 Front End Web Designer Relationship Specialty Start Date End Date Wilfred Fragoso MD [address], [facility] [place] [address] PCP - General Family Medicine 03/12/23 Deepti Saez DO [address] [place] [address] Referring Physician Neurology 12/11/23 Goals (unrecognized section and content) Goals may be documented in a n alternate section FOR RECORDS PERTAINING TO PATIENTS WHO ARE [...] BE BASED ON THE PRIMARY CLINICAL RECORDS. [employer] provides no warranty or guarantee of the accuracy or completeness of information in this document.
[2025-06-05 11:15] LABS: Alanine Aminotransferase 36 U/L (14-59); Albumin Globulin Ratio 1.2; Albumin Level 4.0 g/dL (3.4-5.0); Alkaline Phosphatase 39 U/L (46-116); Anion Gap 13.0; Aspartate Amino Transferase 23 U/L (15-37); Blood Urea Nitrogen 14.0 mg/dL (7.0-18.0); Calcium 8.9 mg/dL (8.5-10.1); Carbon Dioxide 26.6 mmol/L (21.0-32.0); Chloride 105 mmol/L (98-107); Cholesterol 136 mg/dL (<=200); Estimated GFR (African America >60 (>=60 mL/min/1.73m^2); Estimated GFR (Non-African Ame >60 (>=60 mL/min/1.73m^2); Globulin 3.3 g/dL; Glucose 86 mg/dL (74-106); HDL Cholesterol 72 mg/dL (40-60); Potassium 3.6 mmol/L (3.5-5.1); Sodium 141 mmol/L (136-145); TSH W/ REFLEX FT4 0.875 uIU/mL (0.358-3.740); Total Protein 7.3 g/dL (6.4-8.2); Triglycerides 56 mg/dL (<=150); VLDL CHOLESTEROL 11.2 mg/dL
== END 2025-06-05 09:26 | disposition home or self-care (01) ==
PROVIDERS: PCP Family Medicine; Visit Provider Family Medicine
DX: Z00.00 Encounter for general adult medical examination without abnormal findings (principal); R20.2 Paresthesia of skin
CPT/HCPCS: 36415; 80053; 80061; 84443